=== PATIENT | female | born 1960 | race Caucasian/White ===

== ENCOUNTER → 2017-08-31 14:09 | Outpatient (POV) | payer BC, SELFPAY | PROVIDERS: Visit Provider Nurse Practitioner Acute Care | DX: Z00.00 Encounter for general adult medical examination without abnormal findings (principal) ==

== ENCOUNTER → 2017-10-12 13:21 | Outpatient (POV) | payer BC, SELFPAY | PROVIDERS: Visit Provider Nurse Practitioner Acute Care | DX: Z00.00 Encounter for general adult medical examination without abnormal findings (principal) ==

== ENCOUNTER 2017-10-18 17:11 | Emergency (ER) | payer BC, SELFPAY ==
[2017-10-18 17:30] VITALS: BP 137/93; PULSE 80; RESP 16; TEMP 37.1; O2SAT 98; BMI 30.7
--- NOTE | 2017-10-18 17:32 | PC.NURSE ---
wound cleaned upon arrival into the ed and dressed for bleeding control until md is able to suture
--- NOTE | 2017-10-18 17:59 | HMH.EDWNDL ---
ED Disposition Clinical Impression: Laceration of right forearm without foreign body Disposition: Home, Self-Care Condition on Discharge: Fair Instructions: DI for Skin Abscess Additional Instructions: 1- 2 days wound recheck 10 days stitches removal keflex return if needed Prescriptions: cephALEXin [cephALEXin 500mg capsule] 500 mg PO QID #21 cap Referrals: Provider,Referral, [Primary Care Provider] - - Critical Care Critical Care Time: No Attestation: On 10/18/17, the high probability of a clinically significant, sudden or life threatening deterioration of the following system(s) required my full and direct attention, intervention and personal management. The time I documented below is in addition to time spent performing reported procedures but includes the following listed in this critical care notation. Medical Decision Making Vital Signs: 10/18/17 17:30 Temperature 98.8 F Temperature Source Oral Pulse Rate [Right Radial] 80 Respiratory Rate 16 Blood Pressure [Left Arm] 137/93 Blood Pressure Mean [Left Arm] 107 Blood Pressure Source [Left Arm] Automatic Cuff Blood Pressure Position [Left Arm] Sitting 02 Sat by Pulse Oximetry 98 Oxygen Delivery Method Room Air - Ricky Inquiry Pt receiving controlled substance: No Ricky was queried for this patient: No Wound/Laceration HPI - General Chief Complaint: Skin/Abscess/Foreign Body Stated Complaint: lac right arm Mode of Arrival: Ambulatory Limitations: No Limitations Description of Symptoms (Recalled from ER Triage Doc. by RN): CUT RIGHT ARM ON FENCE - History of Present Illness HPI narrative: 57 years old white female cut her right forearm on a fence skin and subcutaneous tissue no active bleeding. Up-to-date on her tetanus and has no diabetes. Onset (ago): minute(s) (30 minutes.) Extremity Location: Right: forearm Place: outdoors, other Patient tetanus UTD: Yes Context: accidental Associated symptoms: none - Related Data Previous Rx's Medication Instructions Recorded cephALEXin [cephALEXin 500mg 500 mg PO QID #21 cap 10/18/17 capsule] Allergies Allergy/AdvReac Type Severity Reaction Status Date / Time No Known Drug Allergies Allergy Unknown Verified 10/18/17 17:39 [NKDA] [facility] History I have reviewed the patient's past medical history: Yes - Social History Alcohol Intake: never - Psychiatric History Expresses thoughts of harming self/others: None Suicide Plan Description: No Plan ROS Obtained: Yes All systems reviewed & no additional complaints Physical Exam - General General appearance: alert, in no apparent distress - Head Head exam: atraumatic, normocephalic, normal inspection - Eye Eye exam: Present: normal appearance, PERRL, EOMI - ENT ENT exam: Present: normal exam, normal oropharynx, mucous membranes moist, TM's normal bilaterally, normal external ear exam - Neck Neck exam: Present: normal inspection, full ROM, trachea midline. Absent: meningismus, lymphadenopathy - Chest Chest inspection: Present: normal inspection, symmetric chest wall rise. Absent: tenderness - Respiratory Respiratory exam: Present: normal lung sounds bilaterally. Absent: respiratory distress - Cardiovascular Cardiovascular exam: Present: regular rate, normal rhythm. Absent: JVD - Abdominal Exam Abdominal exam: Present: soft, normal bowel sounds. Absent: distention, tenderness, guarding - Extremities Exam Extremities exam: Present: normal inspection, full ROM, normal capillary refill, other (3 cm laceration of the right forearm skin and subcut.). Absent: calf tenderness - Back Exam Back exam: Present: normal inspection. Absent: tenderness - Neurological Exam Neurological exam: Present: alert, oriented X3 - Psychiatric Psychiatric exam: Present: normal affect, normal mood - Skin Skin exam: Present: warm, dry, intact, normal color - Lymphatic Lymphatic Findings: no adeno
--- NOTE | 2017-10-18 18:02 | ED_ITS ---
ED Disposition Clinical Impression: Laceration of right forearm without foreign body Disposition: Home, Self-Care Condition on Discharge: Fair Instructions: DI for Skin Abscess Additional Instructions: 1- 2 days wound recheck 10 days stitches removal keflex return if needed Prescriptions: cephALEXin [cephALEXin 500mg capsule] 500 mg PO QID #21 cap Referrals: Provider,Referral, [Primary Care Provider] - - Critical Care Critical Care Time: No Attestation: On 10/18/17, the high probability of a clinically significant, sudden or life threatening deterioration of the following system(s) required my full and direct attention, intervention and personal management. The time I documented below is in addition to time spent performing reported procedures but includes the following listed in this critical care notation. Medical Decision Making Vital Signs: 10/18/17 17:30 Temperature 98.8 F Temperature Source Oral Pulse Rate [Right Radial] 80 Respiratory Rate 16 Blood Pressure [Left Arm] 137/93 Blood Pressure Mean [Left Arm] 107 Blood Pressure Source [Left Arm] Automatic Cuff Blood Pressure Position [Left Arm] Sitting 02 Sat by Pulse Oximetry 98 Oxygen Delivery Method Room Air - Ricky Inquiry Pt receiving controlled substance: No Ricky was queried for this patient: No Wound/Laceration HPI - General Chief Complaint: Skin/Abscess/Foreign Body Stated Complaint: lac right arm Mode of Arrival: Ambulatory Limitations: No Limitations Description of Symptoms (Recalled from ER Triage Doc. by RN): CUT RIGHT ARM ON FENCE - History of Present Illness HPI narrative: 57 years old white female cut her right forearm on a fence skin and subcutaneous tissue no active bleeding. Up-to-date on her tetanus and has no diabetes. Onset (ago): minute(s) (30 minutes.) Extremity Location: Right: forearm Place: outdoors, other Patient tetanus UTD: Yes Context: accidental Associated symptoms: none - Related Data Previous Rx's Medication Instructions Recorded cephALEXin [cephALEXin 500mg 500 mg PO QID #21 cap 10/18/17 capsule] Allergies Allergy/AdvReac Type Severity Reaction Status Date / Time No Known Drug Allergies Allergy Unknown Verified 10/18/17 17:39 [NKDA] [facility] History I have reviewed the patient's past medical history: Yes - Social History Alcohol Intake: never - Psychiatric History Expresses thoughts of harming self/others: None Suicide Plan Description: No Plan ROS Obtained: Yes All systems reviewed & no additional complaints Physical Exam - General General appearance: alert, in no apparent distress - Head Head exam: atraumatic, normocephalic, normal inspection - Eye Eye exam: Present: normal appearance, PERRL, EOMI - ENT ENT exam: Present: normal exam, normal oropharynx, mucous membranes moist, TM's normal bilaterally, normal external ear exam - Neck Neck exam: Present: normal inspection, full ROM, trachea midline. Absent: meningismus, lymphadenopathy - Chest Chest inspection: Present: normal inspection, symmetric chest wall rise. Absent : tenderness - Respiratory Respiratory exam: Present: normal lung sounds bilaterally. Absent: respiratory distress - Cardiovascular Card
[2017-10-18 18:10] VITALS: BP 140/98; PULSE 76; RESP 18; TEMP 36.8; O2SAT 100
== END 2017-10-18 18:10 | disposition home or self-care (01) ==
PROVIDERS: Emergency Provider Emergency Medicine
DX: S51.811A Laceration without foreign body of right forearm, initial encounter (principal); W45.8XXA Other foreign body or object entering through skin, initial encounter; Y92.79 Other farm location as the place of occurrence of the external cause
CPT/HCPCS: 12002; 99282

== ENCOUNTER → 2018-01-25 11:20 | Outpatient (POV) | payer BC, SELFPAY | PROVIDERS: Visit Provider Nurse Practitioner Acute Care | DX: Z00.00 Encounter for general adult medical examination without abnormal findings (principal) ==

== ENCOUNTER → 2018-03-08 13:24 | Outpatient (POV) | payer BC, SELFPAY | PROVIDERS: Visit Provider Nurse Practitioner Acute Care | DX: Z00.00 Encounter for general adult medical examination without abnormal findings (principal) ==

== ENCOUNTER → 2018-04-12 08:25 | Outpatient (CLI) | payer BC, SELFPAY ==
--- NOTE | 2018-04-12 08:26 | MM_ITS ---
MM Dig screening mamm BI w/CAD ORDERING PHYSICIAN : Chandler Mari MD PATIENT AGE: 58 years GENDER: Female COMPARISON: Prior 2016, 2015, 2014 INDICATION: ITS.REASON: screening. No hormones. No new complaints Family history paternal cousin with breast cancer TECHNIQUE: Standard CC and MLO images were obtained. R2 CAD reviewed. FINDINGS: Low-density breast with generalized fatty replacement both breasts. No dominant mass nor suspicious calcifications in either breast. Bilateral follow-up in one year recommended. Stable minor asymmetry . Scattered benign skin calcifications medial right and left breast again noted. Slight progression of the benign punctate calcifications IMPRESSION: Stable bilateral mammogram . No areas of significant concern. Follow-up in one year recommended BI-RADS Category: 1 Negative RECOMMENDED FOLLOW-UP: 1YR 1 YEAR FOLLOW-UP (A letter has been sent to the patient regarding results of the study.)
== END ==
PROVIDERS: Visit Provider Obstetrics & Gynecology
DX: R92.8 Other abnormal and inconclusive findings on diagnostic imaging of breast (principal)
CPT/HCPCS: 77067

== ENCOUNTER → 2018-09-21 12:01 | Outpatient (CLI) | payer BC, SELFPAY ==
--- NOTE | 2018-09-21 12:07 | XR_ITS ---
XR foot LT min 3V HISTORY: ITS.REASON: LEFT FOOT PAIN ORDERING PHYSICIAN: Jerad Soria MD PATIENT AGE: 58 years COMPARISON: None FINDINGS: There is mild hallux valgus. There has been prior bunionectomy at the distal aspect of the first metatarsal. Minimal osteoarthritic changes are present at the first and second MTP joints. There is also osteoarthritic change at the talonavicular and navicular cuneiform joint with hypertrophic change dorsally with a small calcaneal spur. No fracture or dislocation. No lytic or blastic change. IMPRESSION: Hallux valgus with postsurgical and osteoarthritic change, no acute finding
== END ==
PROVIDERS: PCP Family Medicine; Visit Provider Family Medicine
DX: M79.672 Pain in left foot (principal)
CPT/HCPCS: 73630

== ENCOUNTER → 2019-05-03 09:55 | Outpatient (CLI) | payer BC, SELFPAY ==
--- NOTE | 2019-05-03 09:56 | MM_ITS ---
PROCEDURE: MM DIG SCREENING MAMM BI W/CAD CLINICAL INDICATION: screening There is a history of breast cancer patient's paternal cousin. COMPARISON: [facility] DIG MAMM-SCREEN ANCELMO from 03/27/2016 [facility] DIG MAMM-SCREEN [facility] W/CAD from 04/07/2017 [facility] MM Dig screening mamm BI w/CAD from 04/12/2018 TECHNIQUE: Standard CC and MLO images were obtained. R2 CAD reviewed. FINDINGS: The breasts are composed primarily of fat with very minimal scattered fibroglandular densities in each breast. Scattered benign-appearing microcalcifications are seen in both breasts. There is no new or suspicious lesion in either breast and no suspicious microcalcifications. IMPRESSION: Fatty type breast parenchyma with no suspicious lesions seen BI-RAD Category: 2 Benign Finding(s) FOLLOW-UP: 1YR 1 Year Follow-up (A letter has been sent to the patient regarding results of the study.) Dictated by: Dr. Noah Wilson MD 05/05/2019 14:[address] Noah Wilson MD in [place] 05/05/2019 14:22
== END ==
PROVIDERS: PCP Family Medicine; Visit Provider Obstetrics & Gynecology
DX: Z12.31 Encounter for screening mammogram for malignant neoplasm of breast (principal)
CPT/HCPCS: 77067

== ENCOUNTER → 2019-05-30 06:59 | Outpatient (CLI) | payer BC, SELFPAY ==
[2019-05-30 08:58] LABS: Alanine Aminotransferase 28 U/L (12-78); Albumin Level 3.6 gm/dL (3.4-5.0); Albumin/Globulin Ratio 1.2 (1.1-1.8); Alkaline Phosphatase 123 U/L (46-116); Anion Gap 10.3 mEq/L (5-15); Aspartate Amino Transferase 29 U/L (15-37); Bilirubin,Total 0.6 mg/dL (0.2-1.0); Blood Urea Nitrogen 12 mg/dL (7-18); Calcium 8.8 mg/dL (8.5-10.1); Carbon Dioxide 32 mmol/L (21.0-32.0); Chloride 106 mmol/L (98-107); Chol/HDL Ratio 1.5 (1-3.5); Cholesterol 108 mg/dL (140-200); Creatinine,Serum 0.91 mg/dL (0.55-1.02); Estimated Glomerular Filt Rate 63 ml/min (>60); GFR (African American) 77 ML/MIN (>60); Globulin 2.9 gm/dl (1.3-3.2); Glucose 87 mg/dL (74-106); HDL Cholesterol 73 mg/dL (29-89); LDL Cholesterol 25 mg/dL (0-130); Potassium 4.3 mmoL/L (3.5-5.1); Sodium 144 mmol/L (136-145); Total Protein,Serum 6.5 gm/dL (6.4-8.2); Triglycerides 52 mg/dL (30-200); VLDL Cholesterol 10 mg/dL (0-40)
== END ==
PROVIDERS: PCP Family Medicine; Visit Provider Family Medicine
DX: I25.10 Atherosclerotic heart disease of native coronary artery without angina pectoris (principal); Z79.899 Other long term (current) drug therapy
CPT/HCPCS: 36415; 80053; 80061

== ENCOUNTER → 2019-09-30 09:20 | Outpatient (CLI) | payer BC, SELFPAY ==
--- NOTE | 2019-09-30 09:28 | US_ITS ---
PROCEDURE: US BREAST LT COMPLETE CLINICAL INDICATION: BREAST PAIN, LT BREAST NEOPLASM Breast pain and tenderness COMPARISON: MM DIG SCREENING MAMM BI W/CAD from 05/03/2019 US BREAST RT COMPLETE from 09/30/2019 FINDINGS: Unremarkable ultrasound the left breast. No cystic or solid lesions evident. IMPRESSION: Negative left breast ultrasound. Dictated by: Aki Brar MD 10/01/2019 11:23 Electronically signed by Aki Brar MD in [place] 10/01/2019 11:23
--- NOTE | 2019-09-30 09:28 | US_ITS ---
PROCEDURE: US BREAST RT COMPLETE CLINICAL INDICATION: BREAST PAIN COMPARISON: US BREAST LT COMPLETE from 09/30/2019 FINDINGS: No cystic or solid lesions evident. There is a small area of increased echogenicity in the right breast at 6 o'clock which could be due to small lipoma or underlying breast tissue. This measures 12 x 3 mm. IMPRESSION: Negative, no evidence of malignancy Dictated by: Aki Brar MD 10/01/2019 11:25 Electronically signed by Aki Brar MD in [place] 10/01/2019 11:26
== END ==
PROVIDERS: PCP Family Medicine; Visit Provider Family Medicine
DX: N64.4 Mastodynia (principal); D49.3 Neoplasm of unspecified behavior of breast
CPT/HCPCS: 76641

== ENCOUNTER 2020-04-10 04:45 | Observation (INO) | payer BC, SELFPAY ==
[2020-04-10 04:55] VITALS: BP 142/99; PULSE 98; RESP 18; TEMP 37.2; O2SAT 100; BMI 39.1
--- NOTE | 2020-04-10 05:07 | CT_ITS ---
PROCEDURE: CT ABDOMEN PELVIS W CON CLINICAL INDICATION: bloody stool Bloody stools COMPARISON: CT ABDPELW CT ABD PELVIS W/ CONTRAST from 06/12/2017 TECHNIQUE: IV Contrast: 75ML OPTIRAY 350 Oral Contrast None Axial images obtained with sagittal and coronal reformats. All CT scans at the facility use one or more dose reduction, viz: automated exposure control, ma/kV adjustment per patient size (including targeted exams where dose is matched to indication, i.e. head), or iterative reconstruction technique. FINDINGS: LOWER THORAX: There are mild atelectatic or fibrotic changes in the lung bases. ABDOMEN & PELVIS: There is a 2 cm lobulated hypodensity in the hepatic dome which may represent a hepatic cyst. A 3 mm hypodensity is present in the right hepatic lobe posterior to the gallbladder fossa also may represent a small cyst too small to categorize. The spleen, adrenal glands, pancreas, and kidneys have an unremarkable appearance. There is thickening the pyloric region the stomach. No intestinal obstruction or free air. No evidence of appendicitis. There is macdonald colonic diverticulosis but no evidence of diverticulitis. There is some thickening of the sigmoid colon which is more diffuse in nature raising the suspicion colitis. There is a 14 mm sclerotic focus in the left aspect of the ilium consistent with a bone island. IMPRESSION: 1. Pancolonic diverticulosis. No evidence of diverticulitis. There is thickening of the sigmoid colon suggesting colitis 2. Thickening of the pylorus of the stomach. This could be inflammatory or neoplastic. Upper endoscopy may provide further evaluation. This may also be due to nondistention. 3. Other nonacute findings as described above Dictated by: Aki Brar MD 04/10/2020 06:19 Aki Brra MD in [place] 04/10/2020 06:19
[2020-04-10 05:18] LABS: Basophils % 0.5 % (0.1-2.0); Eosinophils # 0.1 K/mm3 (0.0-0.4); Eosinophils % 1.3 % (0.1-12.0); Hematocrit 39.5 % (37.0-47.0); Hemoglobin 13.5 g/dL (12.2-16.2); Lymphocytes # 2.7 K/mm3 (0.7-4.5); Mean Corpuscular HGB Conc 34.2 g/dL (31.8-35.4); Mean Corpuscular Hemoglobin 31.2 pg (27.0-31.2); Mean Platelet Volume 7.6 fl (7.4-10.4); Monocytes # 0.3 K/mm3 (0.1-1.0); Monocytes % 4.7 % (1.7-9.3); Neutrophils % 49.6 % (37.0-80.0); Platelet Count 244 K/mm3 (142-424); Red Blood Count 4.34 M/mm3 (4.20-5.40); Red Cell Distribution Width 13.5 % (11.5-17.5); White Blood Count 6.1 K/mm3 (4.8-10.8)
[2020-04-10 05:29] LABS: Chloride 107 mmol/L (98-107); Sodium 142 mmol/L (136-145)
[2020-04-10 05:31] LABS: Amylase 76 U/L (30-110); Blood Urea Nitrogen 17 mg/dl (7-17); Creatinine Clearance Estimated 126 mL/min (50-200); Estimated Glomerular Filt Rate 64 ml/min (>60); GFR (African American) 77 ML/MIN (>60)
[2020-04-10 05:32] LABS: Alanine Aminotransferase 23 U/L (12-78); Albumin Level 3.8 g/dl (3.5-5.0); Albumin/Globulin Ratio 1.4 (1.1-1.8); Alkaline Phosphatase 102 U/L (38-126); Aspartate Amino Transferase 40 U/L (14-36); Bilirubin,Total 0.5 mg/dl (0.2-1.3); Carbon Dioxide 29 mmol/L (22.0-30.0); Globulin 2.7 g/dL (1.3-3.2); Glucose 100 mg/dl (74-100); Lipase 108 U/L (23-300); Total Protein,Serum 6.5 g/dl (6.3-8.2)
--- NOTE | 2020-04-10 06:06 | PC.NURSE ---
back from rad via wheelchair
[2020-04-10 06:40] LABS: Microscopic, Urine URINE MICROSCOPIC (MICROSCOPIC)
[2020-04-10 06:47] LABS: Appearance,Urine SL CLOUDY (Clear); Bilirubin,Urine Negative (Negative); Blood, Urine TRACE-L (Negative); Color,Urine YELLOW (Yellow); Glucose,Urine (UA) Negative (Negative); Ketones,Urine Negative (Negative); Leukocyte Esterase,Urine 2+ (Negative); Nitrate,Urine Negative (Negative); Protein,Urine Negative (Negative); Urobilinogen,Urine 0.2 EU/dl (0.2)
[2020-04-10 07:03] LABS: Occult Blood,Stool Positive (Negative)
[2020-04-10 07:06] LABS: Bacteria,Urine 2+ /lpf; WBC,Urine 20-50 #/hpf (0-3)
--- NOTE | 2020-04-10 07:06 | HMH.EDGIBL ---
ED Disposition Clinical Impression: Lower gastrointestinal hemorrhage, Colitis, Diverticulosis Disposition: Admitted as Observation Condition on Discharge: Good Referrals: Jerad Soria MD [Primary Care Provider] - - Critical Care Critical Care Time: No Attestation: On 04/10/20, the high probability of a clinically significant, sudden or life threatening deterioration of the following system(s) required my full and direct attention, intervention and personal management. The time I documented below is in addition to time spent performing reported procedures but includes the following listed in this critical care notation. Medical Decision Making - Medical Records Medical records reviewed: Yes: I reviewed the patient's medical records. - Ricky Inquiry Pt receiving controlled substance: No Vital Signs: 04/10/20 04:55 04/10/20 07:14 Temperature 98.9 F Temperature Source Oral Pulse Rate [Right] 98 H 73 Respiratory Rate 18 Blood Pressure [Right Arm] 142/99 H 141/81 H Blood Pressure Mean [Right Arm] 113 101 Blood Pressure Source [Right Arm] Automatic Cuff Automatic Cuff Blood Pressure Position [Right Arm] Supine Supine 02 Sat by Pulse Oximetry 100 99 Oxygen Delivery Method Room Air Room Air - Lab Data Lab results reviewed: Yes: I reviewed the patient's lab results. Lab Results 04/10/20 04:58: WBC 6.1, RBC 4.34, Hgb 13.5, Hct 39.5, MCV 91.0, MCH 31.2, MCHC 34.2, RDW 13.5, Plt Count 244, MPV 7.6, Neut % (Auto) 49.6, Lymph % (Auto) 44.0, [place] % (Auto) 4.7, Eos % (Auto) 1.3, Baso % (Auto) 0.5, Neut # (Auto) 3.0, Lymph # (Auto) 2.7, [place] # (Auto) 0.3, Eos # (Auto) 0.1, Baso # (Auto) 0.0 04/10/20 04:58: Sodium 142, Potassium 4.0, Chloride 107, Carbon Dioxide 29, Anion Gap 10.0, BUN 17, Creatinine 0.90, Estimated Creat Clear 126, Estimated GFR 64, Est GFR ( Amer) 77, Glucose 100, Calcium 9.0, Total Bilirubin 0.5, AST 40 H, ALT 23, Alkaline Phosphatase 102, Total Protein 6.5, Albumin 3.8, Globulin 2.7, Albumin/Globulin Ratio 1.4, Amylase 76, Lipase 108 04/10/20 06:30: Stool Occult Blood Positive A 04/10/20 06:30: Urine Color Yellow, Urine Appearance Sl cloudy, Urine pH 7.0, Ur Specific [place] 1.010, Urine Protein Negative, Urine Glucose (UA) Negative, Urine Ketones Negative, Urine Blood Trace-l, Urine Nitrate Negative, Urine Bilirubin Negative, Urine Urobilinogen 0.2, Ur Leukocyte Esterase 2+ A, Urine RBC 5-10, Urine WBC 20-50, Ur Squamous Epith Cells 5-10, Urine Bacteria 2+ Result diagrams: 04/10/20 04:58 04/10/20 04:58 Orders (Tests/Meds): ED MEDICATIONS Generic Name Dose Route Start Last Admin Trade Name Freq PRN Reason Stop Dose Admin Sodium Chloride 1,000 mls @ 999 mls/hr 04/10/20 05:15 04/10/20 05:18 Sod Chlor 0.9% 1000ml Bag IV 04/10/20 06:15 999 mls/hr .Q1H1M THERESE Administration Pantoprazole Sodium 80 mg/ 100 mls @ 10 mls/hr 04/10/20 06:45 Sodium Chloride IV 04/13/20 06:44 .Q10H THERESE Sodium Chloride 10 ml 04/10/20 05:07 Sodium Chloride 0.9% 10ml Vial IV 05/10/20 05:06 NEEDED PRN dilute protonix Discontinued Medications Generic Name Dose Route Start Last Admin Trade Name Freq PRN Reason Stop Dose Admin Ioversol 75 ml 04/10/20 06:30 Rad-Optiray 350 100ml Vial IV 04/10/20 06:31 ONCE ONE Protocol Pantoprazole Sodium 40 mg 04/10/20 05:07 04/10/20 05:17 Protonix 40mg Vial IV 04/10/20 05:08 40 mg ONCE ONE Administration Sodium Chloride 10 ml 04/10/20 06:30 04/10/20 06:31 Rad-Saline Flush 10ml Syringe IV 04/10/20 06:31 10 ml ONCE ONE Administration ORDERS Category Date Time Status Type and Screen Stat BBK 04/10/20 06:51 Received C-Reactive Protein Stat Lab 04/10/20 04:58 Received ESR [Erythrocyte Sedimentation Rate] Stat Lab 04/10/20 04:58 Received Urine Culture Stat Micro 04/10/20 06:30 Received - CT Data CT Scan: Abdomen, Pelvis Time Received: 07:[address] Reviewed: Yes: I have viewed th
[2020-04-10 07:14] VITALS: BP 141/81; PULSE 73; O2SAT 99
--- NOTE | 2020-04-10 07:24 | PC.NURSE ---
dr Ventura talking to Dr Soria
--- NOTE | 2020-04-10 07:28 | PC.NURSE ---
Called for bed assignment. Pt admitted to [place] for lower GI bleed
[2020-04-10 07:32] LABS: C-Reactive Protein 1.1 mg/L (0-4)
--- NOTE | 2020-04-10 07:33 | PC.NURSE ---
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 Will place pt in a soria bed assignment per direction of bathhouse keeper. Will notify pt of waiting on bed assignment.
--- NOTE | 2020-04-10 07:41 | PC.NURSE ---
Pt updated on admission information, waiting for a bed assignment on second floor, NPO status. Pt verbalized understanding will continue to monitor pt at BS
[2020-04-10 07:50] LABS: Erythrocyte Sedimentation Rate 16 mm/hr (0-30)
[2020-04-10 08:10] LABS: Coronavirus 19 IgG Antibody Negative (Negative); Coronavirus 19 IgM Antibody Negative (Negative)
--- NOTE | 2020-04-10 11:49 | PC.NURSE ---
pt to be admitted to room 213. pt and updated on plan of care. both deny needs or questions. awaiting room cleaning completion for transfer.
[2020-04-10 12:42] VITALS: BP 149/97; PULSE 77; RESP 18; TEMP 36.7; O2SAT 99; BMI 38.9
[2020-04-10 12:53] VITALS: BP 149/97; PULSE 77; RESP 18; TEMP 36.7; O2SAT 99
--- NOTE | 2020-04-10 14:33 | P.CONPHA_ITS ---
[facility] Pharm[facility] VTE Monitoring - Patient Demographics Admission date: 04/10/20 Report Date: 04/10/20 Time: 14:33 Allergies/Adverse Reactions: Patient Allergies No Known Drug Allergies [NKDA] Allergy (Unknown, Verified 04/01/19 08:24) Height: 1.75 m Weight: 119.748 kg Patient Problems: Current Active Problems Lower gastrointestinal hemorrhage (Acute) Colitis (Acute) Diverticulosis (Acute) - VTE Risk Labs: VTE Related Lab Results Hgb 13.5 g/dL (12.2-16.2) 04/10/20 04:58 Hct 39.5 % (37.0-47.0) 04/10/20 04:58 Plt Count 244 K/mm3 (142-424) 04/10/20 04:58 BUN 17 mg/dl (7-17) 04/10/20 04:58 Creatinine 0.90 mg/dl (0.52-1.04) 04/10/20 04:58 Estimated Creat Clear 126 mL/min (50-200) 04/10/20 04:58 VTE Score: 3 VTE Risk Level: Low Risk - Prophylaxis VTE Prophylaxis Ordered?: Yes Types of VTE Prophylaxis: TEDS Knee High Location of Applied Device: Bilateral Lower Extremeties
--- NOTE | 2020-04-10 15:46 | PC.NURSE ---
Called and gave report to Brandi Austin RN. Dr. Soria here and made aware that pt was moving to ob. He did order a H&H for this evening and wants to cont to mx at this time. VSS. Pt is to OB Also, spoke with Jaspal, who is aware pt is moving and going to look at med req.
--- NOTE | 2020-04-10 15:52 | PC.NURSE ---
Report received from Yomi Pradhan RN at 1450. Pt transported to room 279 via wheelchair at 1520, mask worn per COVID-19 policy. Pt tolerated transfer well. Bed locked and in lowest position with side rails up x2, belongings secured, pt oriented to room.
[2020-04-10 15:59] VITALS: BP 125/75; PULSE 77; RESP 18; TEMP 36.6; O2SAT 98
[2020-04-10 15:59] LABS: Hematocrit 33.5 % (37.0-47.0)
--- NOTE | 2020-04-10 16:29 | HMH.PHAINT ---
MEDICATION RECONCILIATION COMPLETED ON PATIENT USING EXTERNAL FILL HISTORY FROM PHARMACY AND LIST FROM [facility] OFFICE. PATIENT HAS ALSO BEEN SEEING [facility] APPRENTICE IN [place], DR. JOHNSON. -RYDER TOPETE, PHARMD
--- NOTE | 2020-04-10 16:57 | HMH.ACPN2 ---
Internal Medicine - PN: Subj *Date: 04/10/20 *Time: 16:57 Interval history: Saw patient who came to ER this morning with several episodes of rectal bleeding. She has had only minimal abd pain, no N/V. Exam Vital signs and Labs for Last 24 Hours: Temp Pulse Resp BP Pulse Ox 97.8 F 77 18 125/75 98 04/10/20 15:59 04/10/20 15:59 04/10/20 15:59 04/10/20 15:59 04/10/20 15:59 Laboratory Results - last 24 hr 04/10/20 04:58: WBC 6.1, RBC 4.34, Hgb 13.5, Hct 39.5, MCV 91.0, MCH 31.2, MCHC 34.2, RDW 13.5, Plt Count 244, MPV 7.6, Neut % (Auto) 49.6, Lymph % (Auto) 44.0, [place] % (Auto) 4.7, Eos % (Auto) 1.3, Baso % (Auto) 0.5, Neut # (Auto) 3.0, Lymph # (Auto) 2.7, [place] # (Auto) 0.3, Eos # (Auto) 0.1, Baso # (Auto) 0.0 04/10/20 04:58: Sodium 142, Potassium 4.0, Chloride 107, Carbon Dioxide 29, Anion Gap 10.0, BUN 17, Creatinine 0.90, Estimated Creat Clear 126, Estimated GFR 64, Est GFR ( Amer) 77, Glucose 100, Calcium 9.0, Total Bilirubin 0.5, AST 40 H, ALT 23, Alkaline Phosphatase 102, Total Protein 6.5, Albumin 3.8, Globulin 2.7, Albumin/Globulin Ratio 1.4, Amylase 76, Lipase 108 04/10/20 04:58: ESR 16 04/10/20 04:58: C-Reactive Protein 1.1 04/10/20 06:30: Stool Occult Blood Positive A 04/10/20 06:30: Urine Color Yellow, Urine Appearance Sl cloudy, Urine pH 7.0, Ur Specific [place] 1.010, Urine Protein Negative, Urine Glucose (UA) Negative, Urine Ketones Negative, Urine Blood Trace-l, Urine Nitrate Negative, Urine Bilirubin Negative, Urine Urobilinogen 0.2, Ur Leukocyte Esterase 2+ A, Urine RBC 5-10, Urine WBC 20-50, Ur Squamous Epith Cells 5-10, Urine Bacteria 2+ 04/10/20 06:51: Blood Type O Positive, Antibody Screen Negative 04/10/20 06:51: SARS-CoV-2 IgG Ab (Rapid) Negative, SARS-CoV-2 IgM Ab (Rapid) Negative 04/10/20 15:30: Hct 33.5 L I & O for Last 24 hours: Intake & Output 04/07/20 04/08/20 04/09/20 04/10/20 23:59 23:59 23:59 23:59 Intake Total 0 / 0 Balance 0 / 0 Weight 264 lb - Constitutional no acute distress - *Routine HEENT Exam Head: Present: normocephalic Eye: Present: EOMI, PERRL ENT: Present: mucous membranes moist - *Routine Neck Exam Present: supple. Absent: lymphadenopathy - *Routine Respiratory Exam Present: CTA bilaterally - *Routine Cardiovascular Exam Present: RRR - *Routine Abdominal Exam Present: soft, normoactive bowel sounds. Absent: tenderness - *Routine Extremities Exam Absent: cyanosis, clubbing, edema - *Routine Skin Exam Present: warm. Absent: rash - *Routine Neurological Exam Present: alert, oriented X3 Assessment and Plan (1) UTI (urinary tract infection) Current visit: Yes Status: Acute Category: Medical Code(s): N39.0 - Urinary tract infection, site not specified (2) Colitis Current visit: Yes Status: Acute Category: Medical Code(s): K52.9 - Noninfective gastroenteritis and colitis, unspecified (3) Diverticulosis Current visit: Yes Status: Acute Category: Medical Code(s): K57.90 - Diverticulosis of intestine, part unspecified, without perforation or abscess without bleeding (4) Lower gastrointestinal hemorrhage Current visit: Yes Status: Acute Category: Medical Code(s): K92.2 - Gastrointestinal hemorrhage, unspecified - Assessment and plan all Dx Assessment and Plan for all problems:: Start Invanz, monitor H/H, give full liquid diet, cont. IVF.
--- NOTE | 2020-04-10 17:10 | HMH.HP ---
*Admission Date: 04/10/20 *Chief complaint: Adryan rectal bleeding *History of present illness: Ms. Gipson is a 59-year-old female with a history of coronary artery disease, myocardial infarction post PCI with 1 stent placement in the LAD in 12/19/2018, childhood asthma, palpitations, and osteopenia, and lumbar disc disease. She also takes Plavix and aspirin. She was recently changed to this from the Brilinta in January 2020. Patient states the bleeding started yesterday before she ate and stool was bloods streaked. This happened again after she ate. Then throughout the night she had 5-6 pure bloodly stools after which she presented to the ER. She Describes some discomfort in her lower abdomen. She denies any nausea or vomiting. She has been voiding QS without difficulty. States she has been very active with ok of tomatoes and carrying large buckets of tomatoes through the ash. Last Colonoscopy was 3 years ago at which time they found polyps and diverticulosis. Since arrival to the emergency room she had several stools there and upon arrival to her bed on second floor. Abdominal/pelvis CT revealed pancolonic diverticulosis with no evidence of diverticulitis; Thickening of the pylorus of the stomach; upper endoscopy recommended for further evaluation. Laboratory data on admission revealed a hemoglobin of 13.5 and hematocrit of 39.5 with repeat hematocrit at 1530 of 33.5. ESR was 16. Blood chemistries: normal electrolytes with a BUN of 17 and creatinine 0.9;blood sugar is 100; liver function studies were satisfactory. Urinalysis did reveal a urinary tract infection. Stool was positive for blood HMH History Medical History: Reports:: Asthma, Atherosclerotic Heart Disease, Coronary Artery Disease, Myocardial Infarction Denies:: Cancer, Diabetes Mellitus Type 1, Diabetes Mellitus Type 2, Gastroesophageal Reflux Disease(GERD), Internal Pacemaker, Lung Disease, MRSA, Seizures *Have you ever received a pneumonia vaccine?: No *Have you received a flu vaccine this season?: No Other Medical History: Reports: Other Other Surgeries: Yes: Cardiac Catheterization, Colonoscopy, Coronary Stent, EGD, Hysterectomy-Total. No: Pacemaker Amputation: No Fractures: No - *Social History Smoking Status: Never smoker Alcohol Intake: never Alcohol Intake Frequency:: other Substance Use Type: denies use *Occupational Status:: other Household Members: spouse *Travel in the last 8 weeks: None Family Hx:: Coronary Artery Disease Review of Systems - Constitutional Denies fatigue, Denies fever(s), Denies lack of energy, Denies weight loss - Eyes Denies change in vision - ENT Denies abnormal hearing, Denies dizziness, Denies ear pain, Denies sore throat - *Cardiovascular Denies chest pain, Denies shortness of breath, Denies irregular heart rhythm, Denies leg swelling - *Respiratory Denies chest congestion, Denies cough, Denies shortness of breath, Denies coughing up blood - *Gastrointestinal Reports abdominal pain - *Genitourinary Denies difficulty urinating - *Musculoskeletal Denies abnormal walking, Denies joint pain - *Neurologic Denies localized weakness, Denies frequent falls, Denies headache(s) Meds Home Medications Medication Instructions Recorded Confirmed Type polyethylene glycoL 3350 [Miralax 17 gm PO DAILY 12/01/17 04/10/20 History 17gm Packet] lisinopril 5 mg tablet 5 mg PO DAILY 04/01/19 04/10/20 History Aspirin [Aspirin 81mg EC Tab] 81 mg PO DAILY 04/10/20 04/10/20 History Atorvastatin Calcium [Lipitor 20mg 20 mg PO DAILY 04/10/20 04/10/20 History Tab] Clopidogrel Bisulfate [Clopidogrel 75 mg PO DAILY 04/10/20 04/10/20 History 75mg Tab] Metoprolol Tartrate [Lopressor 25 mg PO BID 04/10/20 04/10/20 History 25mg tablet] Allergies Allergy/AdvReac Type Severity Reaction Status Date / Time No Known Drug Allergies Allergy Unknown Verified 04/01/19 08:24 [NKDA] Exam Vit
[2020-04-10 17:28] LABS: Hemoglobin 11.3 g/dL (12.2-16.2)
[2020-04-10 20:51] VITALS: BP 141/87; PULSE 80; RESP 18; TEMP 36.7; O2SAT 98
[2020-04-11 05:36] VITALS: BP 127/63; PULSE 74; RESP 15; TEMP 36.8; O2SAT 97
--- NOTE | 2020-04-11 05:37 | PC.NURSE ---
pt has rested well throughout shift, pt alert and oriented x 3 and able to make needs known, heart rate regular, lungs cta, bs x 4 quads, pt denies abdominal tenderness, pain, or nausea, pt has had two loose black tarry stools with evident bright red bleeding this shift, 20g to LAC remains patent and ns infusing, no distress noted at this time will continue to monitor
[2020-04-11 05:39] VITALS: BMI 39.4
[2020-04-11 06:38] LABS: Eosinophils # 0.1 K/mm3 (0.0-0.4); Eosinophils % 1.7 % (0.1-12.0); Hematocrit 30.1 % (37.0-47.0); Monocytes # 0.2 K/mm3 (0.1-1.0)
[2020-04-11 06:44] LABS: Chloride 109 mmol/L (98-107); Potassium 4.1 mmoL/L (3.5-5.1); Sodium 139 mmol/L (136-145)
[2020-04-11 06:46] LABS: Blood Urea Nitrogen 13 mg/dl (7-17); Creatinine Clearance Estimated 163 mL/min (50-200); Estimated Glomerular Filt Rate 85 ml/min (>60); GFR (African American) 103 ML/MIN (>60)
[2020-04-11 06:47] LABS: Anion Gap 8.1 mEq/L (5-15); Carbon Dioxide 26 mmol/L (22.0-30.0); Glucose 86 mg/dl (74-100)
--- NOTE | 2020-04-11 07:02 | PC.NURSE ---
report given to Mauri Aparicio RN
[2020-04-11 07:10] LABS: Activated Partial Thrombo Time 21.9 seconds (23.6-34.0); INR 1.11 (0.9-1.1); Prothrombin Time 11.3 seconds (9.4-11.8)
[2020-04-11 07:11] LABS: Calcium 7.7 mg/dl (8.4-10.2)
[2020-04-11 07:17] LABS: Basophils % 0.3 % (0.1-2.0); Lymphocytes # 1.5 K/mm3 (0.7-4.5); Lymphocytes % 35.9 % (10-50); Mean Corpuscular HGB Conc 33.1 g/dL (31.8-35.4); Mean Corpuscular Volume 93.6 fl (81-99); Mean Platelet Volume 7.4 fl (7.4-10.4); Monocytes % 3.8 % (1.7-9.3); Neutrophils # 2.5 K/mm3 (1.8-7.8); Neutrophils % 58.3 % (37.0-80.0); Platelet Count 181 K/mm3 (142-424); Red Blood Count 3.22 M/mm3 (4.20-5.40); Red Cell Distribution Width 13.4 % (11.5-17.5); White Blood Count 4.2 K/mm3 (4.8-10.8)
[2020-04-11 08:00] VITALS: BP 140/95; PULSE 89; RESP 18; TEMP 36.7; O2SAT 96
--- NOTE | 2020-04-11 08:26 | HMH.ACPN2 ---
<Yulia Thompson - Last Filed: 04/11/20 08:26> Internal Medicine - PN: Subj *Date: 04/11/20 *Time: 08:26 Interval history: Patient states she is feeling better this morning. She did not have diarrhea this morning but did pass some gas. She slept decently well last night. She denies any abdominal pain. She did eat breakfast this morning and is anxious to go home. Exam Vital signs and Labs for Last 24 Hours: Temp Pulse Resp BP Pulse Ox 98.3 F 74 15 127/63 97 04/11/20 05:36 04/11/20 05:36 04/11/20 05:36 04/11/20 05:36 04/11/20 05:36 Laboratory Results - last 24 hr 04/10/20 15:30: Hgb 11.3 L D, Hct 33.5 L 04/11/20 05:17: WBC 4.2 L D, RBC 3.22 L D, Hct 30.1 L, MCV 93.6, MCH 31.0, MCHC 33.1, RDW 13.4, Plt Count 181 D, MPV 7.4, Neut % (Auto) 58.3, Lymph % (Auto) 35.9, Wilcox % (Auto) 3.8, Eos % (Auto) 1.7, Baso % (Auto) 0.3, Neut # (Auto) 2.5, Lymph # (Auto) 1.5, Wilcox # (Auto) 0.2, Eos # (Auto) 0.1, Baso # (Auto) 0.0 04/11/20 05:17: PT 11.3, INR 1.11 H, APTT 21.9 L 04/11/20 05:17: Sodium 139, Potassium 4.1, Chloride 109 H, Carbon Dioxide 26, Anion Gap 8.1, BUN 13, Creatinine 0.70 D, Estimated Creat Clear 163, Estimated GFR 85, Est GFR ( Amer) 103 D, Glucose 86, Calcium 7.7 L D I & O for Last 24 hours: Intake & Output 04/08/20 04/09/20 04/10/20 04/11/20 11:59 11:59 11:59 11:59 Intake Total 0 / 0 Output Total 1200 / 1200 Balance -1200 / -1200 Weight 265 lb 266 lb 6 oz Microbiology Reports for the Last 24 Hours: Microbiology 04/10/20 06:30 Urine,Clean Catch Urine Culture - Preliminary - Constitutional no acute distress - *Routine Respiratory Exam Present: CTA bilaterally - *Routine Cardiovascular Exam Present: RRR - *Routine Abdominal Exam Present: soft, normoactive bowel sounds. Absent: tenderness - *Routine Extremities Exam Present: edema. Absent: cyanosis, clubbing - *Routine Skin Exam Present: warm. Absent: rash - *Routine Neurological Exam Present: alert, oriented X3 Assessment and Plan (1) UTI (urinary tract infection) Current visit: Yes Status: Acute Category: Medical Code(s): N39.0 - Urinary tract infection, site not specified (2) Colitis Current visit: Yes Status: Acute Category: Medical Code(s): K52.9 - Noninfective gastroenteritis and colitis, unspecified (3) Diverticulosis Current visit: Yes Status: Acute Category: Medical Code(s): K57.90 - Diverticulosis of intestine, part unspecified, without perforation or abscess without bleeding (4) Lower gastrointestinal hemorrhage Current visit: Yes Status: Acute Category: Medical Code(s): K92.2 - Gastrointestinal hemorrhage, unspecified (5) Coronary artery disease Current visit: Yes Status: Chronic Category: Medical Code(s): I25.10 - Atherosclerotic heart disease of [place] coronary artery without angina pectoris (6) Anticoagulant long-term use Current visit: Yes Status: Chronic Category: Medical Code(s): 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 Possible discharge home today. Will discuss with Dr. Soria. <Jerad Soria - Last Filed: 04/11/20 08:48> Internal Medicine - PN: Subj *Date: 04/11/20 *Time: 08:47 Exam Vital signs and Labs for Last 24 Hours: Temp Pulse Resp BP Pulse Ox 98.1 F 89 18 140/95 H 96 04/11/20 08:00 04/11/20 08:00 04/11/20 08:00 04/11/20 08:00 04/11/20 08:00 Laboratory Results - last 24 hr 04/10/20 15:30: Hgb 11.3 L D, Hct 33.5 L 04/11/20 05:17: WBC 4.2 L D, RBC 3.22 L D, Hgb 10.0 L D, Hct 30.1 L, MCV 93.6, MCH 31.0, MCHC 33.1, RDW 13.4, Plt Count 181 D, MPV 7.4, Neut % (Auto) 58.3, Lymph % (Auto) 35.9, Wilcox % (Auto) 3.8, Eos % (Auto) 1.7, Baso % (Auto) 0.3, Neut # (Auto) 2.5, Lymph # (Auto) 1.5, Wilcox # (Auto) 0.2, Eos # (Auto) 0.1, Baso # (Auto) 0.0 04/11/20 05:17: PT 11.3, INR 1.11 H, AP
[2020-04-11 12:00] VITALS: BP 120/74; PULSE 76; RESP 20; TEMP 36.7; O2SAT 98
[2020-04-11 14:36] LABS: Hematocrit 29.7 % (37.0-47.0)
[2020-04-11 16:00] VITALS: BP 142/76; PULSE 76; RESP 20; TEMP 36.7; O2SAT 100
--- NOTE | 2020-04-11 17:09 | PC.NURSE ---
1600 no acute changes from previous assessmnet. no bloody stools today. voiding clear yellow urine. v/s stable. tolerates soft diet.
--- NOTE | 2020-04-13 13:06 | HMH.DCSUM ---
General - General Admission date:: 04/10/20 Discharge date: 04/11/20 HPI HPI: Ms. Gipson is a 59-year-old female with a history of coronary artery disease, myocardial infarction post PCI with 1 stent placement in the LAD in 12/19/2018, childhood asthma, palpitations, and osteopenia, and lumbar disc disease. She also takes Plavix and aspirin. She was recently changed to this from the Brilin in January 2020. Patient states the bleeding started yesterday before she ate and stool was blood streaked. This happened again after she ate. Then throughout the night she had 5-6 pure bloodly stools after which she presented to the ER. She Describes some discomfort in her lower abdomen. She denies any nausea or vomiting. She has been voiding QS without difficulty. States she has been very active with ok of tomatoes and carrying large buckets of tomatoes through the ash. Last Colonoscopy was 3 years ago at which time they found polyps and diverticulosis. Since arrival to the emergency room she had several stools there and upon arrival to her bed on second floor. Abdominal/pelvis CT revealed pancolonic diverticulosis with no evidence of diverticulitis; Thickening of the pylorus of the stomach; upper endoscopy recommended for further evaluation. Laboratory data on admission revealed a hemoglobin of 13.5 and hematocrit of 39.5 with repeat hematocrit at 1530 of 33.5. ESR was 16. Blood chemistries: normal electrolytes with a BUN of 17 and creatinine 0.9;blood sugar is 100; liver function studies were satisfactory. Urinalysis did reveal a urinary tract infection. Stool was positive for blood Hospital Course Hospital Course: Patient was started on Invanz as well as IV fluids and a full liquid diet. Her H&H was monitored. She was also given a PPI in the emergency room. The patient did well and by 04/11/2020, she was not having any further diarrhea or passing blood. She was passing some gas. She had slept well and denied any abdominal pain and tolerated a diet. She wanted to be discharged home. She had a repeat H&H which was stable, therefore she was discharged home and will follow-up in the office in 2 days. She will be prescribed the appropriate antibiotic based on her final urine culture at that time. She will remain off of her Plavix and aspirin. Objective Vital signs: Temp Pulse Resp BP Pulse Ox 98.0 F 76 20 142/76 H 100 04/11/20 16:00 04/11/20 16:00 04/11/20 16:00 04/11/20 16:00 04/11/20 16:00 Narrative: - Constitutional no acute distress, cooperative Comments: appears comfortable - *Routine HEENT Exam Head: Present: normocephalic, atraumatic Eye: Present: PERRL. Absent: conjunctival icterus, scleral injection ENT: Present: mucous membranes moist, oropharynx clear, nares patent - *Routine Neck Exam Present: supple. Absent: carotid bruit, lymphadenopathy, thyromegaly - *Routine Respiratory Exam Present: CTA bilaterally (A&P) - *Routine Cardiovascular Exam Present: RRR Comments: occasional ectopy - *Routine Abdominal Exam Present: soft, normoactive bowel sounds. Absent: tenderness, distended, guarding, organomegaly, mass - *Routine Extremities Exam Present: full ROM, pulses intact, KHAI stockings. Absent: edema, calf tenderness - *Routine Neurological Exam Present: alert, oriented X3 DS: Diagnosis - Discharge Diagnosis (1) UTI (urinary tract infection) Status: Acute (2) Colitis Status: Acute (3) Diverticulosis Status: Acute (4) Lower gastrointestinal hemorrhage Status: Acute (5) Coronary artery disease Status: Chronic (6) Anticoagulant long-term use Status: Chronic (7) Anemia Status: Acute Discharge Plan - Patient Discharge Instructions ACTIVITY: Continue current activity DIET: continue same diet Additional Instructions: CALL DR SHAH'S OFFICE TOMORROW TO SCHEDULE APPOINTMENT FOR THURSDAY TO BE SEEN Patient Instructrosmery
== END 2020-04-11 17:40 | disposition home or self-care (01) ==
LOC: ER 07:28 → 2ND 07:42 → OB 15:20
PROVIDERS: Admitting Provider Family Medicine; Emergency Provider Emergency Medicine; PCP Family Medicine; Visit Provider Family Medicine
DX: K57.91 Diverticulosis of intestine, part unspecified, without perforation or abscess with bleeding (principal); I25.2 Old myocardial infarction; I25.10 Atherosclerotic heart disease of native coronary artery without angina pectoris; N39.0 Urinary tract infection, site not specified; D64.9 Anemia, unspecified; Z79.02 Long term (current) use of antithrombotics/antiplatelets; Z79.82 Long term (current) use of aspirin; Z79.899 Other long term (current) drug therapy; Z95.5 Presence of coronary angioplasty implant and graft; Z86.010 Personal history of colon polyps; K52.9 Noninfective gastroenteritis and colitis, unspecified
CPT/HCPCS: 36415; 74177; 80048; 80053; 81001; 82150; 82272; 83690; 85014; 85018; 85025; 85610; 85651; 85730; 86140; 86328; 86850; 87086; 96365; 96367; 96375; 99283; G0328; G0378; J1335

== ENCOUNTER → 2020-05-16 09:45 | Outpatient (CLI) | payer BC, SELFPAY ==
--- NOTE | 2020-05-16 09:47 | MM_ITS ---
PROCEDURE: MM DIG SCREENING MAMM BI W/CAD Digital Breast Tomosynthesis Included CLINICAL INDICATION: SCREENING There is a history of breast cancer in the patient's paternal cousin. COMPARISON: MG DMSB DIG MAMM-SCREEN ANCELMO W/CAD from 04/07/2017 MG SCBI MM Dig screening mamm BI w/CAD from 04/12/2018 MG MM DIG SCREENING MAMM BI W/CAD from 05/03/2019 TECHNIQUE: Standard CC and MLO images and 3D Tomosynthesis was obtained. R2 CAD reviewed. FINDINGS: The breasts are composed primarily of fat with minimal scattered fibroglandular densities in each breast. There are scattered benign-appearing microcalcifications in each breast some of which appear to be cutaneous. There is no suspicious lesion and no suspicious microcalcifications. IMPRESSION: Fatty type breast parenchyma with no suspicious lesions seen BI-RAD Category: 2 Benign Finding(s) FOLLOW-UP: 1YR 1 Year Follow-up (A letter has been sent to the patient regarding results of the study.) Dictated by: Dr. Noah Wilson MD 05/21/2020 09:45 Dr. Noah Wilson MD in [place] 05/21/2020 09:45
== END ==
PROVIDERS: PCP Family Medicine; Visit Provider Obstetrics & Gynecology
DX: Z12.31 Encounter for screening mammogram for malignant neoplasm of breast (principal)
CPT/HCPCS: 77063; 77067

== ENCOUNTER → 2020-07-19 09:09 | Outpatient (CLI) | payer BC, SELFPAY ==
[2020-07-19 12:48] LABS: Coronavirus 19 IgG Antibody Negative (Negative); Coronavirus 19 IgM Antibody Negative (Negative)
== END ==
PROVIDERS: Visit Provider Internal Medicine Gastroenterology
DX: Z01.818 Encounter for other preprocedural examination (principal); Z12.11 Encounter for screening for malignant neoplasm of colon; Z13.810 Encounter for screening for upper gastrointestinal disorder
CPT/HCPCS: 36415; 86328

== ENCOUNTER 2020-07-20 08:32 | Day surgery (SDC) | payer BC, SELFPAY ==
[2020-07-16 11:29] VITALS: BMI 39.9
[2020-07-20 08:47] VITALS: BP 152/98; PULSE 83; RESP 18; TEMP 36.9; O2SAT 97
--- NOTE | 2020-07-20 09:14 | HMH.ANESCL ---
[facility] Anesthesia Checklist - Patient Identification Patient Identification: Arm Band, Verbal (Name & ) - Structural Data Admitted From: Home Planned Operative Procedure/s: EGD, Flexible sigmoidoscopy Consent for Planned Operative Procedure(s) Verified: Yes Verified Documents: Surgical Consent, History and Physical - NPO Status Verified Time NPO: 00:00 - Chart Verification Results Verified: None - Additional verifications Anesthesia Reactions: No - Airway Assessment C-Spine Mobility Assessed: Yes TMJ Mobility Assessed: Yes Dentition: Dentures-good fit (Upper, missing lower teeth) - Neurological Assessment Level of Consciousness: Awake, Alert, Appropriate, Follows Commands Hx Seizures: No Numbness or tingling in extremities: No - Anesthesia Plan Anesthesia Risk discussed: Yes Anesthesia Plan: Verified ASA Class: III Anesthesia Type: MAC [facility] History I have reviewed the patient's past medical history: Yes Medical History: Reports:: Asthma, Atherosclerotic Heart Disease, Coronary Artery Disease, Gastroesophageal Reflux Disease(GERD), Hyperlipidemia, Hypertension, Myocardial Infarction Denies:: Cancer, Diabetes Mellitus Type 1, Diabetes Mellitus Type 2, Internal Pacemaker, Lung Disease, MRSA, Seizures *Have you ever received a pneumonia vaccine?: No *Have you received a flu vaccine this season?: Yes Other Medical History: Reports: Other Comment:: Morbid obesity Anesthesia experience/problems:: No prior complications Other Surgeries: Yes: Cardiac Catheterization, Colonoscopy, Coronary Stent, EGD, Hysterectomy-Total. No: Pacemaker Amputation: No Fractures: No - *Social History Last grade of school completed: Some college Smoking Status: Never smoker Alcohol Intake: never Alcohol Intake Frequency:: other Substance Use Type: denies use *Occupational Status:: unemployed Housing: house Household Members: spouse *Travel in the last 8 weeks: None Family Hx:: Hypertension, Stroke
[2020-07-20 09:44] VITALS: O2SAT 97
--- NOTE | 2020-07-20 10:04 | P.PCN_ITS ---
[facility] Procedure Note Procedure Note:: Upper Endoscopy Procedure Report: Esophagogastroduodenoscopy with cold biopsies and TTS balloon dilation Endoscopost: Ernesto Hall II, MD Referring Physician: Jerad Soria MD/Marc Mcgregor MD Date of Procedure: July 20, 2020 Equipment: Olympus GIF 180 standard upper endoscope Sedation: MAC sedation Indications: Mrs. Gipson is a 60-year-old female with longstanding dyspepsia. She reports no significant abdominal pain but does report constant nausea and bloating. She does have early satiety and some dysphagia. She has had minor belching. She reports regular bowel function but does have obstipation/incomplete defecation. She also has had some bright red rectal bleeding but no melena. She did have a normal EGD in May 2017 (Dr. Marc Mcgregor). Procedure: Prior to the procedure, a history and physical exam was performed, and patient's medications and allergies were reviewed. The risks, benefits and alternatives of the sedation and procedure were discussed with the patient. All questions were answered and informed consent was obtained. The patient was brought to the procedure room. Patient identification and proposed procedure were verified by the physician and the nurse. The patient was placed in a left lateral decubitus position and the scope was passed under direct vision. Throughout the procedure, the patient's blood pressure, pulse, and oxygen saturations were monitored continuously. The upper GI endoscopy was accomplished without difficulty. The patient tolerated the procedure well. Findings: The scope was passed directly into the upper esophagus and advanced to the third portion of the duodenum. The post bulbar duodenum and duodenal bulb were normal with normal mucosa and conniventes. The scope was withdrawn through a normal duodenal bulb and pylorus into the stomach. There was linear reactive gastropathy of the antrum and some mild chronic gastritis of the body and fundus of the stomach. Upon retroflexion there was no hiatal hernia. 2 biopsies were taken in the antrum and lesser curvature to rule out H. pylori. The scope was then withdrawn into the esophagus. There was a serrated Z-line and biopsies were taken distally to rule out intestinal metaplasia. There was no evidence of reflux esophagitis or strictures or Schatzki's ring. There were tertiary contractions and evidence of moderate esophageal dysmotility. The entire esophagus was dilated to 60 Telugu/20 mm with a TTS hydrostatic balloon. There was minor resistance at the cricopharyngeus. The remainder of the esophageal mucosa was normal. Impression: 1. Nonerosive GERD with moderate esophageal dysmotility 2. Bile reflux with mild linear reactive gastropathy and mild chronic gastritis Plan: I will follow-up the biopsies. The patient may benefit from a promotility agent (upper motility?metoclopramide versus upper/lower motility?Motegrity or Zelnorm). We will discuss treatment options. I will proceed with sigmoidoscopy based upon patient's ongoing rectal bleeding.
[2020-07-20 10:15] VITALS: BP 102/59; PULSE 80; RESP 18; TEMP 36.1; O2SAT 92
--- NOTE | 2020-07-20 10:17 | P.PCN_ITS ---
[facility] Procedure Note Procedure Note:: Flexible Sigmoidoscopy Procedure Report: Sigmoidoscopy with monopolar ablation/coagulation to destruction of internal hemorrhoids Endoscopist: Ernesto Hall II, MD Referring physician: Jerad Soria MD/Marc Mcgregor MD Date of Procedure: July 20, 2020 Equipment: Olympus 180 variable stiffness pediatric colonoscope Sedation: MAC sedation Indication: Mrs. Gipson is a 60-year-old female with bright red rectal bleeding that occurred 1 time and filled the commode. The patient was on Plavix. The patient did have a colonoscopy with me in November 2017 and had pandiverticulosis, 2 polyps (non-adenomatous) and grade 1-2 internal hemorrhoids. The patient has had bloating but no abdominal pain. She does have obstipation/incomplete evacuation even though she is regular. Her CAT scan had previously showed some thickening of the sigmoid colon concerning for colitis. Procedure: Prior to the procedure, a history and physical exam was performed, and patient's medications and allergies were reviewed. The risks, benefits and alternatives of the sedation and procedure were discussed with the patient. All questions were answered and informed consent was obtained. The patient was brought to the procedure room. Patient identification and proposed procedure were verified by the physician and the nurse. The patient was placed in a left lateral decubitus position and the scope was passed under direct vision. Throughout the procedure, the patient's blood pressure, pulse, and oxygen saturations were monitored continuously. The colonoscopy was accomplished without difficulty. The patient tolerated the procedure well. Findings: The endoscope was then inserted through the anal canal and advanced to 50 cm. There were scattered diverticuli in the sigmoid colon. The rectum itself was normal. Upon retroflexion there were grade 1 internal hemorrhoids. These were ablated using monopolar ablation/coagulation to destruction of the internal hemorrhoids. Impression: 1. Left-sided diverticulosis 2. Grade 1 internal hemorrhoids status post monopolar ablation/coagulation Plan: I would encourage continuation of a fiber bowel regimen. I am not convinced that her bleeding was from the hemorrhoids. I do feel that this may have been self-limited colitis or ischemic colitis and possibly a diverticular hemorrhage. I will discuss the findings with the patient and family.
[2020-07-20 10:30] VITALS: BP 106/56; PULSE 78; RESP 18; O2SAT 98
[2020-07-20 10:40] VITALS: BP 116/81; PULSE 73; RESP 18; O2SAT 98
[2020-07-20 11:11] VITALS: BP 120/76; PULSE 63; RESP 18; O2SAT 98
== END 2020-07-20 11:11 | disposition home or self-care (01) ==
LOC: OUTP 08:33
PROVIDERS: PCP Family Medicine; Visit Provider Internal Medicine Gastroenterology
PROC: 0DJ08ZZ Inspection of Upper Intestinal Tract, Via Natural or Artificial Opening Endoscopic (ICD-10-PCS; CPT 43235; principal; 2020-07-20 09:30)
PROC: 0DJD8ZZ Inspection of Lower Intestinal Tract, Via Natural or Artificial Opening Endoscopic (ICD-10-PCS; CPT 45330; 2020-07-20 09:30)
DX: K21.9 Gastro-esophageal reflux disease without esophagitis (principal); K22.4 Dyskinesia of esophagus; K31.9 Disease of stomach and duodenum, unspecified; K29.30 Chronic superficial gastritis without bleeding; K57.30 Diverticulosis of large intestine without perforation or abscess without bleeding; K64.0 First degree hemorrhoids; K62.5 Hemorrhage of anus and rectum; J45.909 Unspecified asthma, uncomplicated; I25.10 Atherosclerotic heart disease of native coronary artery without angina pectoris; E78.5 Hyperlipidemia, unspecified; I10 Essential (primary) hypertension; I25.2 Old myocardial infarction
CPT/HCPCS: 43239; 43249; 46930; C1726

== ENCOUNTER → 2020-11-19 09:29 | Outpatient (CLI) | payer BC, SELFPAY ==
[2020-11-19 11:09] LABS: Alanine Aminotransferase 21 U/L (12-78); Albumin Level 4.2 g/dl (3.5-5.0); Albumin/Globulin Ratio 1.8 (1.1-1.8); Alkaline Phosphatase 118 U/L (38-126); Anion Gap 9.3 mEq/L (5-15); Aspartate Amino Transferase 34 U/L (14-36); Bilirubin,Total 0.5 mg/dl (0.2-1.3); Blood Urea Nitrogen 13 mg/dl (7-17); Calcium 9.1 mg/dl (8.4-10.2); Carbon Dioxide 29 mmol/L (22.0-30.0); Chloride 106 mmol/L (98-107); Chol/HDL Ratio 2.1 (1-3.5); Cholesterol 122 mg/dl (140-200); Estimated Glomerular Filt Rate 73 ml/min (>60); GFR (African American) 89 ML/MIN (>60); Globulin 2.4 g/dL (1.3-3.2); Glucose 91 mg/dl (74-100); HDL Cholesterol 59 mg/dl (40-60); Potassium 4.3 mmoL/L (3.5-5.1); Sodium 140 mmol/L (136-145); Total Protein,Serum 6.6 g/dl (6.3-8.2); Triglycerides 69 mg/dl (30-150); VLDL Cholesterol 14 mg/dL (0-40)
[2020-11-19 11:20] LABS: Direct LDL Cholesterol 42.99 mg/dL (100-129)
== END ==
PROVIDERS: Visit Provider Family Medicine
DX: E78.00 Pure hypercholesterolemia, unspecified (principal)
CPT/HCPCS: 36415; 80053; 80061

== ENCOUNTER 2020-12-27 18:45 | Emergency (ER) | payer BC, SELFPAY ==
[2020-12-27] VITALS (8 sets, daily range): BP systolic 129–161; BP diastolic 80–91; PULSE 69–89; RESP 17–23; TEMP 36.7–36.9; O2SAT 94–100; BMI 38.4
--- NOTE | 2020-12-27 18:38 | ECG_ITS ---
APPROVED REPORT Exam: Resting ECG HR:81 bpm ECG Measurements Heart Rate 81 AXES MT 174 P 71 QRSd 78 QRS 41 QT 356 T 38 QTc 413 Conclusion Normal sinus rhythm Possible Left atrial enlargement Nonspecific ST abnormality Abnormal ECG Electronically signed by : Wing Zaman, 12/29/2020 11:37:56
--- NOTE | 2020-12-27 18:49 | HMH.EDGENADL ---
ED Disposition Condition on Discharge: Good - Critical Care Critical Care Time: No <NickolasclarissaAnil - Last Filed: 12/27/20 20:15> <Jose David Ventura - Last Filed: 12/27/20 22:48> Clinical Impression: Atypical chest pain Disposition: Home, Self-Care Instructions: DI for Atypical Chest Pain Additional Instructions: call pcp in am Referrals: Jerad Soria MD [Primary Care Provider] - Attestation: On 12/27/20, the high probability of a clinically significant, sudden or life threatening deterioration of the following system(s) required my full and direct attention, intervention and personal management. The time I documented below is in addition to time spent performing reported procedures but includes the following listed in this critical care notation. Medical Decision Making - Ricky Inquiry Pt receiving controlled substance: No - Lab Data Result diagrams: 12/27/20 18:49 12/27/20 18:49 - DANIELLE Score for Non-Stemi Age of Patient: 60-69 years old Heart Rate: 70-89 bpm Systolic Blood Pressure: 160-199 mmHg Serum Creatinine: 0.80-1.19 mg/dl CHF [place] Class: I-No CHF <NickolasclarissaAnil - Last Filed: 12/27/20 20:15> - Lab Data Result diagrams: 12/27/20 18:49 12/27/20 18:49 <Jose David Ventura - Last Filed: 12/27/20 22:48> Vital Signs: 12/27/20 18:45 12/27/20 19:29 12/27/20 20:00 Temperature 98.1 F Temperature Source Oral Pulse Rate 89 82 Pulse Rate [Right] 80 Respiratory Rate 18 18 19 Blood Pressure 129/86 138/87 Blood Pressure [Right Arm] 161/80 H Blood Pressure Mean [Right Arm] 107 02 Sat by Pulse Oximetry 98 94 L 95 Oxygen Delivery Method Room Air 12/27/20 20:49 12/27/20 21:30 12/27/20 22:01 Temperature Temperature Source Pulse Rate 79 69 77 Pulse Rate [Right] Respiratory Rate 22 23 17 Blood Pressure 133/90 136/91 H 142/86 H Blood Pressure [Right Arm] Blood Pressure Mean [Right Arm] 02 Sat by Pulse Oximetry 95 94 L 97 Oxygen Delivery Method - Lab Data Lab Results 12/27/20 18:49: WBC 6.2, RBC 4.58, Hgb 13.6, Hct 42.3, MCV 92.3, MCH 29.6, MCHC 32.1, RDW 13.6, Plt Count 241, MPV 7.6, Neut % (Auto) 54.2, Lymph % (Auto) 38.0, [place] % (Auto) 5.7, Eos % (Auto) 1.5, Baso % (Auto) 0.6, Neut # (Auto) 3.3, Lymph # (Auto) 2.3, [place] # (Auto) 0.4, Eos # (Auto) 0.1, Baso # (Auto) 0.0 12/27/20 18:49: Sodium 137, Potassium 3.7, Chloride 102, Carbon Dioxide 29, Anion Gap 9.7, BUN 14, Creatinine 0.90, Estimated Creat Clear 124, Estimated GFR 64, Est GFR ( Amer) 77, Glucose 101 H, Calcium 9.3, Total Bilirubin 0.3, AST 35, ALT 21, Alkaline Phosphatase 140 H, Troponin I < 0.01, Total Protein 6.9, Albumin 4.3, Globulin 2.6, Albumin/Globulin Ratio 1.7 12/27/20 22:00: Troponin I < 0.01 Orders (Tests/Meds): ORDERS Category Date Time Status Troponin I Q3H Lab 12/28/20 01:00 Ordered - ECG Data Tracing #1 EKG interpreted by Anil Cabrales MD: Rhythm: sinus Rate: 81 Darby: normal Ectopy: none Conduction: normal ST Segment Changes: none T Wave Changes: none Q Waves: none No evidence of acute ischemia or injury Baseline wander present, but I consider the EKG adequate for accurate interpretation. No prior EKGs available for comparison. (Anil Cabrales) Medical Decision Narrative: 8:15 PM: At shift change, I have discussed the patient with Dr. Ventura, who will assume care of the patient at this time. I have discussed all clinical information including history, physical and diagnostic study results. Preliminary diagnoses based on information available at this point have been recorded by me. Controlled substance administration and critical care statement are also preliminary, as of the time of handoff. First troponin is normal. Awaiting second troponin at 3 hours. Her pain is very atypical for cardiac and work-up is thus far negative. Findings are most consistent with chest wall pain. (Anil Cabrales) General Adult HPI <[place]
--- NOTE | 2020-12-27 18:56 | XR_ITS ---
PROCEDURE INFORMATION: Exam: XR Chest Exam date and time: 12/27/2020 6:56 PM Age: 60 years old Clinical indication: Other: Cp; Prior surgery; Surgery date: 6+ months; Surgery type: Stent; Patient HX: Centralized chest pain since 3 TECHNIQUE: Imaging protocol: XR of the chest. Views: 1 view. COMPARISON: CR CXR CHEST(2 VIEWS-NOT PORTABLE) 12/31/2016 7:02 PM FINDINGS: Airway: The airways are patent. Lungs: Low lung volumes causes crowding of the bronchovascular structures. No acute interstitial or airspace disease. Pleural spaces: There are no pleural effusions present. There is no evidence of pneumothorax. Heart/Mediastinum: Cardiomediastinal silhouette is magnified due to technique. Bones/joints: No acute skeletal abnormality or aggressive osseous lesion. IMPRESSION: Negative for acute thoracic pathology.
[2020-12-27 19:11] LABS: Basophils % 0.6 % (0.1-2.0); Eosinophils # 0.1 K/mm3 (0.0-0.4); Eosinophils % 1.5 % (0.1-12.0); Hematocrit 42.3 % (37.0-47.0); Hemoglobin 13.6 g/dL (12.2-16.2); Lymphocytes # 2.3 K/mm3 (0.7-4.5); Mean Corpuscular HGB Conc 32.1 g/dL (31.8-35.4); Mean Corpuscular Hemoglobin 29.6 pg (27.0-31.2); Mean Corpuscular Volume 92.3 fl (81-99); Mean Platelet Volume 7.6 fl (7.4-10.4); Monocytes # 0.4 K/mm3 (0.1-1.0); Monocytes % 5.7 % (1.7-9.3); Neutrophils # 3.3 K/mm3 (1.8-7.8); Neutrophils % 54.2 % (37.0-80.0); Platelet Count 241 K/mm3 (142-424); Red Blood Count 4.58 M/mm3 (4.20-5.40); Red Cell Distribution Width 13.6 % (11.5-17.5); White Blood Count 6.2 K/mm3 (4.8-10.8)
[2020-12-27 19:15] LABS: Chloride 102 mmol/L (98-107); Potassium 3.7 mmoL/L (3.5-5.1); Sodium 137 mmol/L (136-145)
[2020-12-27 19:17] LABS: Alanine Aminotransferase 21 U/L (12-78); Aspartate Amino Transferase 35 U/L (14-36); Blood Urea Nitrogen 14 mg/dl (7-17); Creatinine Clearance Estimated 124 mL/min (50-200); Estimated Glomerular Filt Rate 64 ml/min (>60); GFR (African American) 77 ML/MIN (>60)
[2020-12-27 19:18] LABS: Albumin Level 4.3 g/dl (3.5-5.0); Albumin/Globulin Ratio 1.7 (1.1-1.8); Alkaline Phosphatase 140 U/L (38-126); Anion Gap 9.7 mEq/L (5-15); Bilirubin,Total 0.3 mg/dl (0.2-1.3); Calcium 9.3 mg/dl (8.4-10.2); Carbon Dioxide 29 mmol/L (22.0-30.0); Globulin 2.6 g/dL (1.3-3.2); Glucose 101 mg/dl (74-100); Total Protein,Serum 6.9 g/dl (6.3-8.2)
[2020-12-27 19:32] LABS: Troponin I < 0.01 ng/ml (0.00-0.034)
[2020-12-27 22:32] LABS: Troponin I < 0.01 ng/ml (0.00-0.034)
== END 2020-12-27 23:09 | disposition home or self-care (01) ==
PROVIDERS: Emergency Provider Emergency Medicine; PCP Family Medicine
DX: R07.89 Other chest pain (principal); R11.2 Nausea with vomiting, unspecified
CPT/HCPCS: 71045; 80053; 84484; 85025; 93005; 99282

== ENCOUNTER → 2021-03-04 09:44 | Outpatient (CLI) | payer BC, SELFPAY ==
--- NOTE | 2021-03-04 09:47 | NM_ITS ---
PROCEDURE: NM GASTRIC EMPTYING STUDY CLINICAL INDICATION: GERD,NAUSEA W/ VOMITING COMPARISON: No exams were available for comparison FINDINGS: The radioisotope passes through the stomach into the small bowel without evidence of obstruction. The half time of the gastric emptying measures 57 minutes, within normal limits. IMPRESSION: Normal gastric emptying study. Dictated by: Madelyn Marshall 03/04/2021 14:52 Madelyn Marshall in [place] 03/04/2021 14:52
== END ==
PROVIDERS: PCP Family Medicine; Visit Provider Internal Medicine Gastroenterology
DX: K21.9 Gastro-esophageal reflux disease without esophagitis (principal); R11.2 Nausea with vomiting, unspecified
CPT/HCPCS: 78264; A9541

== ENCOUNTER → 2021-03-05 09:47 | Outpatient (CLI) | payer BC, SELFPAY ==
--- NOTE | 2021-03-05 09:50 | US_ITS ---
PROCEDURE: US ABDOMEN LIMITED CLINICAL INDICATION: EPIGASTRIC ABD PAIN, SLUDGE IN GALLBLADDER COMPARISON: No exams were available for comparison FINDINGS: PANCREAS: The visualized pancreas is within normal limits. The tail is partially obscured LIVER: Anechoic lesion is noted in the right lobe of the liver measuring 1.7 centimeters. No other focal liver lesions demonstrated. Homogeneous echogenicity. No intrahepatic biliary ductal dilatation evident. There is appropriate direction of blood flow within a non dilated portal vein RIGHT KIDNEY: Unremarkable. Normal size and echogenicity. No hydronephrosis GALLBLADDER: Small amount of sludge is noted in the gallbladder. No gallstones, gallbladder wall thickening, pericholecystic fluid, or biliary dilatation. IMPRESSION: Cyst in the right lobe of the liver measuring 1.7 centimeters. No cholelithiasis or cholecystitis. Dictated by: Madelyn Marshall 03/05/2021 12:07 Madelyn Marshall in [facility] 03/05/2021 12:07
== END ==
PROVIDERS: PCP Family Medicine; Visit Provider Family Medicine
DX: R10.13 Epigastric pain (principal); K82.8 Other specified diseases of gallbladder; R11.2 Nausea with vomiting, unspecified
CPT/HCPCS: 76705

== ENCOUNTER → 2021-03-13 13:05 | Outpatient (POV) | payer BC, SELFPAY | DX: Z00.00 Encounter for general adult medical examination without abnormal findings (principal) ==

== ENCOUNTER → 2021-03-18 06:53 | Outpatient (CLI) | payer BC, SELFPAY ==
--- NOTE | 2021-03-18 07:07 | NM_ITS ---
PROCEDURE: NM HEPATOBILIARY WO PHARM CLINICAL INDICATION: RUQ ABD PAIN COMPARISON: US US ABDOMEN LIMITED from 03/05/2021 TECHNIQUE: DOSE: 4.86 mCi technetium Choletec. Ensure was given for fatty meal FINDINGS: Homogeneous activity is present within the hepatic parenchyma. Activity is present in the gallbladder by 10 minutes. Activity is present in the small bowel by 30 minutes. The gallbladder ejection fraction is calculated to be 56 percent. Nausea was reported after drank in the fatty meal. IMPRESSION: No evidence of common or cystic duct obstruction. Normal gallbladder ejection fraction Dictated by: Aki Brar MD 03/18/2021 13:42 Aki Brar MD in [facility] 03/18/2021 13:42
--- NOTE | 2021-03-18 07:23 | HMH.ITSHM ---
Current Home Medications as stated by this patient Angelica Gipson or c s s representative. []VITAMIN D3 CLOPIDOGREL LOPRESSOR KONSYL OMEPRAZOLE MIRALAX LISINOPRIL ALIGN ATORVASTATIN ASA
== END ==
PROVIDERS: PCP Family Medicine; Visit Provider Internal Medicine Gastroenterology
DX: R10.11 Right upper quadrant pain (principal); R11.0 Nausea; K59.9 Functional intestinal disorder, unspecified
CPT/HCPCS: 78226; A9537

== ENCOUNTER → 2021-05-21 07:54 | Outpatient (CLI) | payer BC, SELFPAY ==
--- NOTE | 2021-05-21 07:55 | MM_ITS ---
PROCEDURE: MM DIG SCREENING MAMM BI W/CAD Digital Breast Tomosynthesis Included CLINICAL INDICATION: screening mammogram There is a history of breast cancer patient's paternal cousin. COMPARISON: MG MM DIG SCREENING MAMM BI W/CAD from 05/03/2019 MG MM DIG SCREENING MAMM BI W/CAD from 05/16/2020 TECHNIQUE: Standard CC and MLO images and 3D Tomosynthesis was obtained. R2 CAD reviewed. FINDINGS: Breasts are composed primarily of minimal scattered fibroglandular densities throughout each breast. There are scattered benign-appearing microcalcifications throughout each breast. There are no CAD markings. There is no suspicious lesion and no suspicious microcalcifications. IMPRESSION: . Fatty type breast parenchyma with no suspicious lesions seen BI-RAD Category: 2 Benign Finding(s) FOLLOW-UP: 1YR 1 Year Follow-up (A letter has been sent to the patient regarding results of the study.) Dictated by: Dr. Noah Wilson MD 05/24/2021 08:43 Dr. Noah Wilson MD in [place] 05/24/2021 08:43
== END ==
PROVIDERS: PCP Family Medicine; Visit Provider Obstetrics & Gynecology
DX: Z12.31 Encounter for screening mammogram for malignant neoplasm of breast (principal)
CPT/HCPCS: 77063; 77067

== ENCOUNTER → 2022-05-23 10:51 | Outpatient (CLI) | payer BC, SELFPAY ==
--- NOTE | 2022-05-23 10:52 | MM_ITS ---
PROCEDURE INFORMATION: Exam: MG Bilateral Screening 3D Mammography Exam date and time: 05/23/2022 10:50 AM Age: 62 years old Clinical indication: Screening mammogram TECHNIQUE: Imaging protocol: Bilateral Screening tomosynthesis and 2D mammography including computer-aided detection (CAD) when performed. COMPARISON: 1. MG MM DIG SCREENING MAMM BI W/CAD 05/21/2021 7:56 AM 2. MG MM DIG SCREENING MAMM BI W/CAD 05/16/2020 10:06 AM 3. MG MM DIG SCREENING MAMM BI W/CAD 05/03/2019 10:03 AM 4. MG SCBI MM Dig screening mamm BI w/CAD 04/12/2018 8:49 AM FINDINGS: MAMMOGRAPHY: Breast composition: There are scattered areas of fibroglandular density. Mass: None. Architectural distortion: No new or suspicious architectural distortion. Calcifications: Stable benign-appearing calcifications are present. No new or suspicious cluster of microcalcifications have developed. Asymmetric density: No new or suspicious asymmetric density is present Skin thickening: None. Axillary adenopathy: None. IMPRESSION: No mammographic evidence of malignancy. Recommend annual screening mammography unless otherwise clinically indicated. ASSESSMENT: BI-RADS category 2: Benign
== END ==
PROVIDERS: PCP Family Medicine; Visit Provider Obstetrics & Gynecology
DX: Z12.31 Encounter for screening mammogram for malignant neoplasm of breast (principal)
CPT/HCPCS: 77063; 77067

== ENCOUNTER → 2022-10-14 09:08 | Outpatient (CLI) | payer BC, SELFPAY ==
--- NOTE | 2022-10-14 09:12 | XR_ITS ---
FINAL REPORT CLINICAL HISTORY: left knee pain, pain and swelling, knee giving out FINDINGS: AP, oblique, lateral and sunrise views of the left knee were obtained. There is no acute fracture or dislocation. There is degenerative joint disease most pronounced in the medial and patellofemoral compartments. No joint effusion is seen. There is a small suprapatellar loose body. IMPRESSION: Degenerative change with no acute bony abnormality. Suprapatellar loose body. Reviewed, Interpreted and Dictated by Sofía Adams MD Transcribed by Amy Pinedo Authenticated and [facility]
== END ==
PROVIDERS: PCP Family Medicine; Visit Provider Physician Assistant Surgical
DX: M25.562 Pain in left knee (principal)
CPT/HCPCS: 73562

== ENCOUNTER → 2022-10-14 09:47 | Outpatient (POV) | payer BC, SELFPAY | PROVIDERS: Visit Provider Dermatology | DX: Z00.00 Encounter for general adult medical examination without abnormal findings (principal) ==

== ENCOUNTER → 2022-11-17 07:34 | Outpatient (CLI) | payer BC, SELFPAY ==
[2022-11-17 09:14] LABS: Alanine Aminotransferase 23 U/L (12-78); Albumin Level 4.1 g/dl (3.5-5.0); Albumin/Globulin Ratio 1.8 (1.1-1.8); Alkaline Phosphatase 131 U/L (38-126); Anion Gap 8.2 mEq/L (5-15); Aspartate Amino Transferase 29 U/L (14-36); Bilirubin,Total 0.6 mg/dl (0.2-1.3); Blood Urea Nitrogen 15 mg/dl (7-17); Calcium 8.6 mg/dl (8.4-10.2); Carbon Dioxide 32 mmol/L (22.0-30.0); Chloride 102 mmol/L (98-107); Cholesterol 112 mg/dl (140-200); Estimated Glomerular Filt Rate 63 ml/min (>60); GFR (African American) 77 ML/MIN (>60); Globulin 2.3 g/dL (1.3-3.2); Glucose 91 mg/dl (74-100); HDL Cholesterol 57 mg/dl (40-60); Potassium 4.2 mmoL/L (3.5-5.1); Sodium 138 mmol/L (136-145); Total Protein,Serum 6.4 g/dl (6.3-8.2); Triglycerides 80 mg/dl (30-150); VLDL Cholesterol 16 mg/dL (0-40)
[2022-11-17 09:25] LABS: Direct LDL Cholesterol 36.96 mg/dL (100-129)
== END ==
PROVIDERS: PCP Family Medicine; Visit Provider Family Medicine
DX: E78.00 Pure hypercholesterolemia, unspecified (principal)
CPT/HCPCS: 36415; 80053; 80061; 84443

== ENCOUNTER → 2023-05-28 10:45 | Outpatient (CLI) | payer BC, SELFPAY ==
--- NOTE | 2023-05-28 10:45 | MM_ITS ---
PROCEDURE INFORMATION: Exam: MG Bilateral Screening 3D Mammography Exam date and time: 05/28/2023 10:41 AM Age: 63 years old Clinical indication: Screening mammogram TECHNIQUE: Imaging protocol: Bilateral Screening tomosynthesis and 2D mammography including computer-aided detection (CAD) when performed. COMPARISON: 1. MG MM DIG SCREENING MAMM BI W/CAD 05/23/2022 10:50 AM 2. MG MM DIG SCREENING MAMM BI W/CAD 05/21/2021 7:56 AM 3. MG MM DIG SCREENING MAMM BI W/CAD 05/16/2020 10:06 AM 4. MG MM DIG SCREENING MAMM BI W/CAD 05/03/2019 10:03 AM FINDINGS: MAMMOGRAPHY: Breast composition: There are scattered areas of fibroglandular density. Mass: None. Architectural distortion: No new or suspicious architectural distortion. Calcifications: Stable benign-appearing calcifications are present. No new or suspicious cluster of microcalcifications have developed. Asymmetric density: No new or suspicious asymmetric density is present Skin thickening: None. Axillary adenopathy: None. IMPRESSION: No mammographic evidence of malignancy. Recommend annual screening mammography unless otherwise clinically indicated. ASSESSMENT: BI-RADS category 2: Benign
== END ==
PROVIDERS: PCP Family Medicine; Visit Provider Obstetrics & Gynecology
DX: Z12.31 Encounter for screening mammogram for malignant neoplasm of breast (principal)
CPT/HCPCS: 77063; 77067

== ENCOUNTER 2023-07-21 16:59 | Emergency (ER) | payer BC, SELFPAY ==
[2023-07-21 17:01] VITALS: BP 141/106; PULSE 89; RESP 18; TEMP 36.6; O2SAT 97; BMI 36.1
--- NOTE | 2023-07-21 17:29 | XR_ITS ---
PROCEDURE INFORMATION: Exam: XR Left Knee Exam date and time: 07/21/2023 5:37 PM Age: 63 years old Clinical indication: Pain; Knee; Left; Additional info: Knee pain no injury TECHNIQUE: Imaging protocol: Radiologic exam of the left knee. Views: 3 views. COMPARISON: CR XR KNEE LT 3V 10/14/2022 9:13 AM FINDINGS: Bones/joints: Mild joint space narrowing in the lateral compartment. Osseous alignment is normal. No acute fracture. [id number] tricompartmental osteophyte formation, most pronounced at the patella. Small amount of joint fluid in the suprapatellar region. Soft tissues: Normal. IMPRESSION: Mild tricompartmental osteoarthritis and small joint effusion
[2023-07-21 17:30] VITALS: BP 133/99; PULSE 88; RESP 20; O2SAT 96
--- NOTE | 2023-07-21 17:56 | HMH.EDGENADL ---
Discharge Plan Disposition Patient Disposition: Home, Self-Care Prescriptions Prescriptions: No Action lisinopril 5 mg tablet 5 mg PO DAILY oxybutynin chloride 10 mg tablet extended release 24hr 10 mg PO DAILY Qty: 30 2RF nitroglycerin 0.4 mg tablet, sublingual 0.4 mg buccal PRN polyethylene glycol 3350 17 GM powder in packet 17 g PO DAILY clopidogrel 75 MG tablet 75 mg PO DAILY metoprolol tartrate 25 MG tablet 25 mg PO BID aspirin 81 MG tablet,delayed release (DR/EC) 81 mg PO DAILY atorvastatin 20 mg tablet 40 mg PO DAILY calcium citrate-vitamin D3 1 EACH tablet 1 each PO DAILY psyllium husk 6 GM powder in packet 6 g PO DAILY Referrals Follow up/Referrals: Jerad Soria MD [Primary Care Provider] - See instructions Luciano Dos Santos DO [Staff Physician] - See instructions Activity Restrictions/Add. Instructions Additional Instructions/Restrictions: Follow-up with Dr. Dos Santos for evaluation of possible outpatient MRI and further procedural intervention for treatment of your osteoarthritis and possible ligamental or meniscal disease. Clinical Impressions Clinical Impression: Osteoarthritis of right knee Discharge ED Provider: Giovanny Scott General Adult HPI General Chief complaint: PAIN Stated complaint: lt knee pain Time Seen by Provider: 07/21/23 17:45 Mode of Arrival: Wheelchair Source of Information: Patient and Spouse Limitations: No Limitations Description of Symptoms (Recalled from ER Triage Doc. by RN): 63 yo F presents to ED with c/o left knee pain. pt states that she does have arthritis in that knee. pt reports that she feels like her knee is catching . pt reports she sat down on a lower toilet earlier today. when this happened she began to feel the pain. pt reports that later on in the afternoon she was attempting to put the recliner down and was unable to due to the pain. History of Present Illness HPI narrative: Patient is a 63-year-old female who has known osteoarthritis of her knees presents today with catching of her left knee . She states that no significant injury she states that she was trying to move from the toilet this is when it first caught. She continues to do other activity throughout the day and just pain progressively worsened. Pain is localized to the knee itself no significant swelling no circumferential swelling of the rest of the leg. Denies any fevers redness or any other concerns. Related Data Home Medications Medication Instructions Recorded Confirmed polyethylene glycol 3350 17 gram 17 g PO DAILY CONSTIPATION 12/01/17 06/25/23 oral powder packet lisinopril 5 mg tablet 5 mg PO DAILY Hypertension 04/01/19 06/25/23 aspirin 81 mg tablet,delayed 81 mg PO DAILY HEART HEALTH 04/10/20 06/25/23 release clopidogrel 75 mg tablet 75 mg PO DAILY PLATELET INHIBITOR 04/10/20 06/25/23 metoprolol tartrate 25 mg tablet 25 mg PO BID Hypertension 04/10/20 06/25/23 calcium citrate 315 mg 1 each PO DAILY Supplement 07/16/20 06/25/23 calcium-vitamin D3 6.25 mcg (250 unit) tablet psyllium husk 6 gram oral powder 6 g PO DAILY fiber 07/16/20 06/25/23 packet atorvastatin 20 mg tablet 40 mg PO DAILY Cholesterol 05/16/21 06/25/23 nitroglycerin 0.4 mg sublingual 0.4 mg buccal PRN 05/28/23 06/25/23 tablet Previous Rx's Medication Instructions Recorded oxybutynin chloride 10 mg 10 mg PO DAILY #30 tabs 06/25/23 tablet,extended release 24 hr Allergies Allergy/AdvReac Type Severity Reaction Status Date / Time No Known Drug Allergies Allergy Unknown Verified 06/25/23 08:58 [NKDA] [facility] Disclaimer: The information contained in this section may have been updated after the patient was seen, as this information can be updated by other users. Medical History Hammer syndrome Urge incontinence Urinary urgency Surgical History (Reviewed
[2023-07-21 18:14] VITALS: BP 133/99; PULSE 88; RESP 20; TEMP 36.6
== END 2023-07-21 18:19 | disposition home or self-care (01) ==
PROVIDERS: Emergency Provider Student in an Organized Health Care Education/Training Program; PCP Family Medicine
DX: M17.0 Bilateral primary osteoarthritis of knee (principal)
CPT/HCPCS: 73562; 99283

== ENCOUNTER 2023-08-31 14:43 | Outpatient (CLI) | payer BC, SELFPAY ==
--- NOTE | 2023-08-31 14:43 | MR_ITS ---
FINAL REPORT CLINICAL HISTORY: Left knee pain. KNEE LOCKS UP COMPARISON: None FINDINGS: Multiplanar MR imaging of the left knee was performed without contrast. There is medial and lateral menisci degeneration. There is a tear involving the posterior horn of the lateral meniscus. There is abnormal morphology of the anterior cruciate ligament favored to represent chronic partial tear. The medial collateral ligament and lateral ligamentous complex are intact. The patellar and quadriceps tendons are intact. There is no evidence of fracture. There are moderate degenerative changes. There is moderate medial compartment chondromalacia. There is severe patellofemoral chondromalacia. There is a 13 mm loose body in the patellofemoral compartment. There is a probable 5 mm loose body in the popliteal cyst. A small joint effusion is seen. The musculature is intact. There is a small popliteal cyst. IMPRESSION: Tear posterior horn lateral meniscus. 13 mm loose body patellofemoral compartment Chondromalacia. Abnormal ACL, favor chronic partial tear. Reviewed, Interpreted and Dictated by Marc Adamson III, MD Transcribed by Marita Edwards Authenticated and [facility]
== END 2023-08-31 23:59 ==
LOC: RAD 14:43
PROVIDERS: PCP Family Medicine; Visit Provider Orthopaedic Surgery
DX: M25.562 Pain in left knee (principal)
CPT/HCPCS: 73721

== ENCOUNTER 2023-09-09 13:01 | Outpatient (CLI) | payer BC, SELFPAY ==
--- NOTE | 2023-09-09 13:14 | XR_ITS ---
FINAL REPORT TECHNIQUE: Chest PA & Lateral CLINICAL HISTORY: Pre Op for meniscus repair. Medicated for blood pressure. Hx of heart attack and stents December 2018. Non smoker. COMPARISON: 12/27/2020 FINDINGS: 2 views of the chest were performed. The heart size is normal. The mediastinum is within normal limits. There is no acute cardiopulmonary process. There are no pleural effusions. There is no pneumothorax. The bony thorax appears intact. IMPRESSION: No acute cardiopulmonary process. Reviewed, Interpreted and Dictated by Wil Anne MD Transcribed by Marita Edwards Authenticated and [facility]
[2023-09-09 13:25] LABS: Basophils % 0.6 % (0.1-2.0); Eosinophils # 0.1 K/mm3 (0.0-0.4); Eosinophils % 2.2 % (0.1-12.0); Hematocrit 40.6 % (37.0-47.0); Hemoglobin 13.7 g/dL (12.2-16.2); Lymphocytes # 1.6 K/mm3 (0.7-4.5); Mean Corpuscular HGB Conc 33.8 g/dL (31.8-35.4); Mean Corpuscular Hemoglobin 30.8 pg (27.0-31.2); Mean Corpuscular Volume 91.2 fl (81-99); Mean Platelet Volume 7.3 fl (7.4-10.4); Monocytes # 0.2 K/mm3 (0.1-1.0); Monocytes % 4.9 % (1.7-9.3); Neutrophils # 2.7 K/mm3 (1.8-7.8); Neutrophils % 58.3 % (37.0-80.0); Platelet Count 241 K/mm3 (142-424); Red Blood Count 4.45 M/mm3 (4.20-5.40); Red Cell Distribution Width 13.8 % (11.5-17.5); White Blood Count 4.6 K/mm3 (4.8-10.8)
--- NOTE | 2023-09-09 13:31 | ECG_ITS ---
APPROVED REPORT Exam: Resting ECG HR:61 bpm ECG Measurements Heart Rate 61 AXES CO 194 P 66 QRSd 86 QRS 42 QT 391 T 52 QTc 394 Conclusion SINUS RHYTHM POSSIBLE RIGHT VENTRICULAR CONDUCTION DELAY [RSR (QR) IN V1/V2] BORDERLINE ECG UNCONFIRMED REPORT Electronically signed by : Wing Zaman MD 09/11/2023 14:41:24
[2023-09-09 14:05] LABS: Chloride 103 mmol/L (98-107); Sodium 139 mmol/L (136-145)
[2023-09-09 14:06] LABS: Potassium 3.9 mmoL/L (3.5-5.1)
[2023-09-09 14:08] LABS: Alanine Aminotransferase 20 U/L (12-78); Alkaline Phosphatase 128 U/L (38-126); Anion Gap 8.9 mEq/L (5-15); Aspartate Amino Transferase 30 U/L (14-36); Bilirubin,Total 0.5 mg/dl (0.2-1.3); Blood Urea Nitrogen 13 mg/dl (7-17); Carbon Dioxide 31 mmol/L (22.0-30.0); Estimated Glomerular Filt Rate 56 ml/min (>60); GFR (African American) 68 ML/MIN (>60)
[2023-09-09 14:09] LABS: Albumin Level 3.7 g/dl (3.5-5.0); Albumin/Globulin Ratio 1.5 (1.1-1.8); Globulin 2.4 g/dL (1.3-3.2); Glucose 88 mg/dl (74-100); Total Protein,Serum 6.1 g/dl (6.3-8.2)
== END 2023-09-09 23:59 ==
PROVIDERS: PCP Family Medicine; Visit Provider Orthopaedic Surgery
DX: Z01.818 Encounter for other preprocedural examination (principal); S83.272A Complex tear of lateral meniscus, current injury, left knee, initial encounter
CPT/HCPCS: 36415; 71046; 80053; 85025; 93005

== ENCOUNTER 2023-09-23 06:01 | Day surgery (SDC) | payer BC, SELFPAY ==
[2023-09-10 17:26] VITALS: BMI 35.4
[2023-09-23] VITALS (10 sets, daily range): BP systolic 109–141; BP diastolic 72–93; PULSE 61–84; RESP 15–18; TEMP 35.7–43; O2SAT 93–99
[2023-09-23] MEDS: LACTATED RINGERS 1000ML 1,000 ML 25 ML IV (06:35)
[2023-09-23] MEDS: CEFAZOLIN SODIUM 2 GM in 0.9 % SODIUM CHLORIDE 100 ML IV (07:58)
[2023-09-23] MEDS: RINGERS SOLUTION,LACTATED 6,000 ML 6000 ML IR (07:59)
--- NOTE | 2023-09-23 08:17 | EXP.ANES.CKL ---
[facility] Disclaimer: The information contained in this section may have been updated after the patient was seen, as this information can be updated by other users. Medical History CAD (coronary artery disease) GERD (gastroesophageal reflux disease) Hammer syndrome History of OH (myocardial infarction) HLD (hyperlipidemia) HTN (hypertension) Urge incontinence Urinary urgency Surgical History H/O: hysterectomy History of cardiac cath History of colonoscopy History of foot surgery History of heart artery stent History of vein stripping Family History Other Asthma Coronary artery disease Heart attack Hyperlipidemia Hypertension Thyroid disorder Social History Smoking Status: Never smoker second hand exposure: No alcohol intake: never substance use type: denies use current occupational status: other Travel in the last 8 weeks: None household members: spouse housing: house 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 current occupational exposures/hazards: No caffeine: Yes [facility] Anesthesia Checklist Patient Identification Patient Identification: Arm Band, Family and Verbal (Name & ) Structural Data Admitted From: Home Planned Operative Procedure/s: Left Knee scope w/ pmm Consent for Planned Operative Procedure(s) Verified: Yes Verified Documents: Surgical Consent and History and Physical NPO Status Verified Time NPO: 21:00 Chart Verification Results Verified: CBC, BMP, ECG and Chest Xray Additional verifications Patient : No Anesthesia Reactions: No Hx Blood Transfusions: No Blood Transfusion Reaction: No Cardiovascular Assessment Heart Sounds: S1 & S2 Pulse Rhythm: Irregular Airway Assessment Mallampati Score:: Class II C-Spine Mobility Assessed: Yes (FROM) TMJ Mobility Assessed: Yes Dentition: Edentulous Neurological Assessment Level of Consciousness: Awake, Alert, Appropriate and Follows Commands Hx Seizures: No Numbness or tingling in extremities: No Anesthesia Plan Anesthesia Risk discussed: Yes Anesthesia Plan: Verified ASA Class: III Anesthesia Type: General
[2023-09-23] MEDS: BUPIVACAINE 0.25% 30ML VIAL 75 MG (08:43)
--- NOTE | 2023-09-23 08:52 | EXP.OP.NOTE ---
Date of procedure: 09/23/23 Pre-op Diagnosis:: Left knee lateral meniscus tear Left knee multiple loose bodies Post-op Diagnosis:: Same with severe patellofemoral osteoarthritis Procedure performed:: Left knee arthroscopy partial lateral meniscectomy Left knee arthroscopy with removal of multiple loose bodies Surgeon:: Luciano Dos Santos DO Anesthesia: GETA Estimated blood loss (mL): 0 Operative findings:: Severe patellofemoral osteoarthritis with rimming osteophytes multiple intra-articular loose bodies and lateral meniscus tear Operative note:: Patient is identified preoperatively. Left knee marked with yes my initials. Transported operative suite. Placed upon operating bed. General anesthesia ministered airway secured. Left lower extremity prepped and draped within the knee strong. Once prepped and draped final operative timeout performed to identify proper patient procedure and extremity. Everyone involved the case agreed. There were no counter indications to beginning. She did receive preoperative antibiotics. Marking pen was used to bre the bony landmarks of the knee and standard portal sites. Esmarch was used to exsanguinate the extremity pneumatic tourniquet inflated to 300 mmHg. Skin knife was used to incise standard anterior lateral portal. Blunt with trocar was placed in the patellofemoral joint exchange with a camera. Diagnostic arthroscopy began. Within the patellofemoral joint there was some undersurface osteophyte of the patella areas of grade III chondromalacia of the trochlea swept directly into the medial joint line where the anterior medial portal was made with an 18-gauge needle exchange with a probe within the medial joint line there was chondromalacia of the medial femoral condyle and some softening of the cartilage on the femoral side. The meniscus was intact. In the intercondylar notch the ACL was seen there were multiple loose bodies in the intercondylar notch which were removed with a grasper. Scope into the lateral joint line there was tearing of the anterior horn and the posterior horn of the lateral meniscus using a combination of straight biter and sucker shaver partial lateral meniscectomy was performed back to stable rim in the lateral gutter there was evidence of another loose body which was removed with a grasper swept into the patellofemoral joint patellofemoral joint there were multiple loose bodies 1 large loose body which was smeared with the spinal needle and held in place and removed with a grasper with moderate difficulty. The loose bodies were clear this suction was placed in the patellofemoral joint to confirm no further loose bodies in the knee I swept into the medial and lateral gutters back in the medial and lateral joint line and in the intercondylar notch and saw no further loose body so the camera was removed the joint was drained local anesthesia infiltrated to the portal sites skin closed with nylon stitch sterile dressing placed from toe to thigh patient waken anesthesia taken recovery in stable condition. Tourniquet time (min): 49 Condition: stable Disposition: PACU Complications:: None apparent
--- NOTE | 2023-09-23 08:55 | P.PNANES_ITS ---
[facility] Anesthesia Record Part I Anesthesia Record I Intake, IV Amount: 700 Hydration: Adequate Estimated blood loss (mL): 15 Urine output (mL): 0 Blood Products used (#): none Blood Pressure: 117/83 SaO2: 95 Pulse Rate: 84 Airway Patency: Patent Respiratory Rate: 16 Temperature: 96.3 F Patient is:: Awake and Stable Stable to PACU at:: 08:59
--- NOTE | 2023-09-23 09:05 | SUR.PHASEII ---
Clinic Pharmacy called, spoke to Comfort, at this time, made aware pt will be in post-op in about 30 min.
[2023-09-23] MEDS: MORPHINE 2MG/ML SYRINGE 2 MG IV (09:13)
--- NOTE | 2023-09-24 09:13 | EXP.ANES.II ---
[facility] [place] Anesthesia Record Part II Anesthesia Record Part II Discharge Time: 09:24 Destination: Surgical Day Care (OP Surgery) PACU nurse assessment reviewed?: Yes Patient Condition:: Good Anesthesia Complications:: None Swallowing reflex intact?: Yes Airway Patency: Patent Cyanosis?: No Blood Pressure: 122/73 SaO2: 99 Respiratory Rate: 16 Pulse Rate: 67 Temperature: 97.9 F Mental Status: Alert & Oriented Pain level:: 3 Nausea and/or vomitting:: None Intake, IV Amount: 0 Hydration: Adequate
[2023-09-24 09:14] VITALS: BP 122/73; PULSE 67; RESP 16; TEMP 36.6; O2SAT 99
== END 2023-09-23 10:03 | disposition home or self-care (01) ==
PROVIDERS: PCP Family Medicine; Visit Provider Orthopaedic Surgery
PROC: (CPT 29870; principal; 2023-09-23 07:30)
DX: S83.272A Complex tear of lateral meniscus, current injury, left knee, initial encounter (principal); M23.42 Loose body in knee, left knee; M17.12 Unilateral primary osteoarthritis, left knee
CPT/HCPCS: 29881; 96374; J2405

== ENCOUNTER 2023-11-06 08:00 | Outpatient (RCR) | payer BC, SELFPAY ==
--- NOTE | 2023-10-14 08:40 | HMH.PTOPEV ---
PT Outpatient Evaluation Rehab PT Outpatient Evaluation Start: 10/14/23 07:55 Freq: Status: Active Protocol: Document 10/14/23 08:26 RICKEY (Rec: 10/14/23 08:40 RICKEY [id number]) E-signed By Oscar Farrell, PT Outpatient Therapy Subjective History Subjective History Patient is a 63 year old female presenting to outpatient PT with reports of L post-surgical knee pain S/P L knee PL meniscectomy and loose body removal. 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 Symptoms of insidious onset starting approx 1 year ago. Sx date 09/23/23 (3 weeks S/P). 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 New diagnosis of cancer in past 12 No months? Chief Complaint Pain,Stiff,Swelling,Weakness Symptom Type Ache Symptoms Relieved By Rest/Positioning,Ice Symptoms Aggravated By Standing,Physical Activity, Walking Prior Functional Limitations Standing,Walking Current Functional Limitations Housework,Standing,Squatting, Recreation Activity,Walking, Stairs,Balance Symptom Description Intermittent Level of pain today (0-10) 0 Pain scale - at its best (0-10) 0 Pain scale - at its worst (0-10) 7 Hip/Knee Eval Gait Observation General Gait Pattern Observation Antalgic Gait,Decrease Weight Bear (L) Assistive Device Assistive Devices Straight Cane Palpation Tenderness left Knee Palpation Finding Tenderness Knee Palpation Overall Comment PL joint line/PL popliteal fossa 2/4 MMT Hip Flexion Strength Grade 4- Good- Hip Abduction Strength Grade 4- Good- Hip Adduction Strength Grade 3+ Fair+ Hip Extension Strength Grade 4- Good- Hip External Rotation Strength Grade 4- Good- Hip Internal Rotation Strength Grade 4- Good- Knee Extension Strength Grade 4- Good- Knee Flexion Strength Grade 3+ Fair+ ROM Hip ROM Reason Not Measured Within Functional Limits Knee Extension Active Range of Motion ( -8 degrees) Knee Extension Passive Range of Motion ( 0 degrees) Knee Flexion Active Range of Motion ( 64 degrees) Knee Flexion Passive Range of Motion ( 75 degrees) Knee ROM Limitations Soft Tissue Tightness,Pain Special Tests Knee Valgus Stress Test Negative Left Knee Varus Stress Test Negative Left Lower Extremity Functional Index Activities Today, do you or would you have any difficulty at all with: a.Any of your usual work, housework or Moderate difficulty school activities b. Your usual hobbies, recreational or Extreme difficulty or unable sporting activities to perform activity c. Getting into or out of the bath Moderate difficulty d. Walking between rooms Moderate difficulty e. Putting on your shoes or socks Quite a bit of difficulty f. Squatting Moderate difficulty g. Lifting an object, like a bag of A little bit of difficulty groceries from the floor h. Performing light activities around Quite a bit of difficulty your home i. Performing heavy activities around Quite a bit of difficulty your home j. Getting into or out of a car Moderate difficulty k. Walking 2 blocks Extreme difficulty or unable to perform activity l. Walking a mile Extreme difficulty or unable to perform activity m. Going up or down 10 stairs (about 1 Extreme difficulty or unable flight of stairs) to perform activity n. Standing for 1 hour Quite a bit of difficulty o. Sitting for 1 hour Quite a bit of difficulty p. Running on even ground Extreme difficulty or unable to perform activity q. Running on uneven ground Extreme difficulty or unable to perform activity r. Making sharp turns while running fast Extreme difficulty or unable to perform activity s. Hopping Extreme difficulty or unable to perform activity t. Rolling over in bed Quite a bit of difficulty LEFI Score Lower Extremity Functional Index Score 19 Outpatient Therapy Assessment Impairments Problems/Impairmments Palpation Tenderness,Impaired Range of Motion,Impaired Strength,Impaired Gait Pattern ,Impaired Walking,Impaired Standing,Impaired Household Care,Impaired Stair Climbing, Impaired Incline Stepping, Impaired Stepping on Uneven Surface,Impaired Squatting, Impaired Recreational Activities,Increased Edema, Subjective C/O Pain Prognosis Rehab Potential Good Clinical Impression Consistent with Diagnosis Yes Short Term Goals Number of Weeks 2 Decrease Subjective C/O Pain Yes: 10 at worst Patient to be Ind w/ HEP Yes Emission Specialist Goals Number of Weeks 4-6 Decreased Palpation Tenderness Yes: 1/ Increase Range of Motion Yes: 0-130 Increase Strength Yes: 5/5 L hip/thigh mm Increase Ability to Walk Yes: 1 hr without difficulty Increase Ability to Stand Yes: a Improve Ability For Household Care Yes Improve Ability to Climb Stairs Yes: 1 flight up/down without difficulty Improve LEFI Score Yes: >55 Decrease Subjective C/O Pain Yes: 2/10 at worst Outpatient Therapy Plan of Care Treatment Plan May Include Therapeutic Exercise Including Home Yes Exercise Program Manual Therapy Techniques Yes Neuromuscular Re-education Yes Therapeutic Activities to Return to Yes Previous Functional/Work Level Gait Training Yes ADL/Self Care Education Yes Dry Needling Yes Thermal Modalities Yes Electrical Stimulation Yes Ultrasound/Phonophoresis Yes Iontophoresis Yes Orthotics/Bracing/Splinting Yes Vasopneumatic Compression Pump Yes Massage Yes Manual Lymphatic Drainage Yes Eval/Re-Eval Yes Frequency Times per week 2-3 Duration Number of Weeks 4-6 Addendums This patient is a candidate for social No or vocational rehab? Patient/Guardian verbally acknowledges Yes understanding of treatment program and consents to further treatment? Patient/Guardian verbally acknowledges Yes understanding of diagnosis, prognosis and goals for treatment? Eval Complexity PT Charges 69218 - Moderate Complexity Shoulder/Elbow Eval Shoulder Objective Measurements Elbow Objective Measurements PHYSICIAN CERTIFICATION: I certify the specified therapy services for Angelica Gipson are required, authorized, and reviewed every 30 days.
== END 2023-11-06 09:20 | disposition home or self-care (01) ==
LOC: PT 08:00
PROVIDERS: Visit Provider Orthopaedic Surgery
DX: M25.562 Pain in left knee; S83.242A Other tear of medial meniscus, current injury, left knee, initial encounter
CPT/HCPCS: 97010; 97014; 97016; 97110; 97112; 97140; 97163; 97530; G0283

== ENCOUNTER 2023-11-25 07:31 | Outpatient (CLI) | payer BC, SELFPAY ==
[2023-11-25 09:05] LABS: Chloride 106 mmol/L (98-107); Potassium 3.8 mmoL/L (3.5-5.1); Sodium 139 mmol/L (136-145)
[2023-11-25 09:08] LABS: Alanine Aminotransferase 20 U/L (12-78); Albumin Level 3.8 g/dl (3.5-5.0); Albumin/Globulin Ratio 1.7 (1.1-1.8); Alkaline Phosphatase 146 U/L (38-126); Anion Gap 5.8 mEq/L (5-15); Aspartate Amino Transferase 29 U/L (14-36); Bilirubin,Total 0.7 mg/dl (0.2-1.3); Blood Urea Nitrogen 10 mg/dl (7-17); Calcium 9.5 mg/dl (8.4-10.2); Carbon Dioxide 31 mmol/L (22.0-30.0); Cholesterol 97 mg/dl (140-200); Estimated Glomerular Filt Rate 63 ml/min (>60); GFR (African American) 77 ML/MIN (>60); Globulin 2.2 g/dL (1.3-3.2); Glucose 99 mg/dl (74-100); Triglycerides 70 mg/dl (30-150); VLDL Cholesterol 14 mg/dL (0-40)
[2023-11-25 09:09] LABS: Chol/HDL Ratio 2.3 (1-3.5); HDL Cholesterol 43 mg/dl (40-60)
[2023-11-25 09:20] LABS: Direct LDL Cholesterol 39.01 mg/dL (100-129)
[2023-11-25 09:40] LABS: Thyroid Stimulating Hormone 1.74 uIU/mL (0.465-4.68)
== END 2023-11-25 23:59 | disposition home or self-care (01) ==
LOC: LAB 07:32
PROVIDERS: PCP Family Medicine; Visit Provider Family Medicine
DX: E78.00 Pure hypercholesterolemia, unspecified (principal)
CPT/HCPCS: 36415; 80053; 80061; 84443

== ENCOUNTER 2024-06-28 10:54 | Outpatient (CLI) | payer BC, SELFPAY ==
--- NOTE | 2024-06-28 10:54 | MM_ITS ---
PROCEDURE INFORMATION: Exam: MG Bilateral Screening 3D Mammography Exam date and time: 06/28/2024 10:44 AM Age: 64 years old Clinical indication: Screening. A paternal cousin had breast cancer. TECHNIQUE: Imaging protocol: Bilateral Screening tomosynthesis and 2D mammography including computer-aided detection (CAD) when performed. COMPARISON: MG MM DIG SCREENING MAMM BI W/CAD 05/21/2021 7:56 AM (05/28/2023 and 05/23/2022 mammograms not available, if these are provided, I am happy to add an addendum). FINDINGS: MAMMOGRAPHY: Breast composition: There are scattered areas of fibroglandular density. Mass: None. Architectural distortion: None. Calcifications: No suspicious calcifications. Asymmetric density: No developing asymmetry. Skin thickening: None. Axillary adenopathy: None. IMPRESSION: No mammographic evidence of malignancy. Annual screening is recommended unless otherwise clinically indicated. ASSESSMENT: BI-RADS Category 1: Negative.
== END 2024-06-28 23:59 | disposition home or self-care (01) ==
LOC: RAD 10:54
PROVIDERS: PCP Family Medicine; Visit Provider Obstetrics & Gynecology
DX: Z12.31 Encounter for screening mammogram for malignant neoplasm of breast (principal)
CPT/HCPCS: 77063; 77067